=== PATIENT | female | born 2000 | race African-American/Black ===

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

== ENCOUNTER 2021-01-02 23:56 | Emergency (ER) | payer MEDICAID ==
[~2021-01-02] VITALS: Ht 180.3 cm; Wt 135.6 kg
[~2021-01-02 23:56] MED LIST changes: +BCP
--- NOTE | 2021-01-03 00:47 | ED Lower Extremity ---
General Chief Complaint: Lower Extremity Stated Complaint: R FOOT INJ / FALL Nursing Triage Note: Per pt report, Sunday afternoon, pt's right knee "gave out" and she fell and hit the outside of her right foot. Reports taking ibuprofen around 2100, with no relief. Source: patient (TALKS VERY SOFTLY--DIFFICULT TO HEAR) History of Present Illness Date Seen by Provider: January 03, 2021 Time Seen by Provider: 00:10 Initial Comments PT ARRIVES VIA POV FROM HOME WITH MOM--WANTS WHEELCHAIR ON ARRIVAL MOM IS ALSO BEING SEEN FOR EXACT SAME COMPLAINT PT STATES SOMETIME THIS AFTERNOON, HER RIGHT KNEE GAVE OUT ( FREQUENT PROBLEM) AND SHE FELL, HITTING/TWISTING HER RIGHT FOOT C/O PAIN TO LATERAL ASPECT OF RIGHT FOOT NO SWELLING OR BRUISING NO PARESTHESIAS OR MOTOR DEFICITS TOOK IBUPROFEN AT 2100 WITHOUT RELIEF NO PRIOR INJURIES OR PROBLEMS WITH THIS FOOT/ANKLE HAS HAD PRIOR RIGHT KNEE SURGERY. DOES NOT HAVE ANY PAIN IN HER KNEE NO OTHER INJURIES FROM THE INCIDENT LMP--NOW PCP: [facility] AT DR. SUAREZ'S OFFICE Allergies and Home Medications Allergies Coded Allergies: pseudoephedrine (Unverified Adverse Reaction, Mild, 05/21/18) Home Medications Albuterol Sulfate 1 Puff Puff, 2 PUFF IH Q4H PRN for SHORTNESS OF BREATH, (Reported) 1 PUFF = 90 MCG Budesonide/Formoterol Fumarate 10.2 Gm Hfa.aer.ad, 2 PUFF IH BID, (Reported) Sulfamethoxazole/Trimethoprim 1 Each Tablet, 1 EACH PO BID Prescribed by: MOJGAN HERNANDEZ on 07/02/20 0841 Patient Home Medication List Home Medication List Reviewed: Yes Review of Systems Constitutional: no symptoms reported LMP: January 02, 2021 Control/STD Prophylaxis: BC Pills Musculoskeletal: see HPI Skin: no symptoms reported Psychiatric/Neurological: No Symptoms Reported Past Pnwotic-Xkeuzd-Wosobn Hx Past Med/Social Hx: Reviewed and Corrections made Patient Social History Alcohol Use: Denies Use Drug of Choice: DENIES Smoking Status: Never a Smoker 2nd Hand Smoke Exposure: No Recent Infectious Disease Expo: No Recent Hopitalizations: No Ebola Symptoms: Denies Symptoms Listed Immunizations Up To Date Tetanus Booster (TDap): Less than 5yrs PED Vaccines UTD: Yes Date of Pneumonia Vaccine: May 20, 2009 Date of Influenza Vaccine: May 24, 2016 Seasonal Allergies Seasonal Allergies: Yes Past Medical History Surgeries: Yes (DENTAL;UD;L SHOULDER ARTHROSCOPY-TORN LABRUM x2;OVARIAN CYSTECTOMY;R KNEE ) Gallbladder, Orthopedic, Tonsillectomy Respiratory: Yes Asthma Cardiac: No Neurological: No Reproductive Disorders: Yes (LEFT OVARIAN CYST) Female Reproductive Disorders: Denies, Ovarian Cyst Sexually Transmitted Disease: No HIV/AIDS: No Genitourinary: No Gastrointestinal: No Musculoskeletal: Yes (ORTHO SURGERIES) Endocrine: No HEENT: Yes (S/P TONSILLECTOMY) Tonsilitis Loss of Vision: Bilateral Cancer: No Psychosocial: Yes Anxiety, Depression Integumentary: No Blood Disorders: No Adverse Reaction/Blood Tranf: No (N/A) Family Medical History Other Conditions/Hx Physical Exam Vital Signs Vital Signs - First Documented 01/03/21 00:10 Temp 35.7 Pulse 83 Resp 16 B/P (MAP) 122/79 Pulse Ox 98 O2 Delivery Room Air Capillary Refill : Height, Weight, BMI Height: 5'11.00" Weight: 190lbs. 0oz. 86.734389pa; 41.00 BMI Method:Stated General Appearance: WD/WN, no apparent distress, obese, other (VERY FLAT/DEPRESSED AFFECT. TALKS VERY QUIETLY. ) Ankles: left ankle normal inspection; right ankle limited range of motion, right ankle other (NO TENDERNESS TO LATERAL MALLEOLOUS, BUT IS TENDER JUST DISTAL TO ANKLE / PROXIMAL -LATERAL ASPECT OF FOOT. PT WEARING AN MONA WRAP AROUND RIGHT ANKLE. NO BRUISING OR SWELLING) Feet: right foot limited range of motion, right foot other (TENDERNESS TO LATERAL ASPECT OF FOOT/ MID AND PROXIMAL ASPECT . NO BRUISING OR SWELLING OR EXTERNAL EVIDENCE OF TRAUMA. MOTOR/SENSORY/VASCULAR INTACT. 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 NO COMMUNICATION WITH MOTHER DURING ER STAY AMBULATES OUT OF ER ON HER OWN Diagnostic Imaging Comments XRAYS RIGHT FOOT AND ANKLE--NO ACUTE PROCESS, PENDING RADIOLOGIST REVIEW Reviewed: Reviewed by Me Departure Impression Primary Impression: Right foot sprain Disposition: 01 HOME, SELF-CARE Condition: Stable Departure-Patient Inst. Decision time for Depature: 01:08 Referrals: TOMY SUAREZ MD (PCP/Family) Primary Care Physician Patient Instructions: Foot Sprain ED Add. Discharge Instructions: MONA WRAP NEEDED FOR COMFORT ICE TO AREA AT 20 MINUTE INTERVALS ELEVATE FOOT MUCH POSSIBLE TYLENOL AND MOTRIN NEEDED FOR PAIN FOLLOW UP WITH YOUR DR IN 1 WEEK IF NO BETTER All discharge instructions reviewed with patient and/or family. Voiced understanding. SARAH LAROSE DO January 03, 2021 00:47
--- NOTE | 2021-01-03 06:10 | Diagnostic Imaging Report ---
INDICATION: Right ankle pain COMPARISON: None FINDINGS: 3 views of the right ankle demonstrate no fracture or dislocation. Articular surfaces are normal. No foreign body seen. IMPRESSION: No fracture identified Dictated by: Dictated on workstation # [id number]
--- NOTE | 2021-01-03 06:19 | Diagnostic Imaging Report ---
INDICATION: Right foot injury COMPARISON: None FINDINGS: 3 views of the right foot demonstrate no fracture or dislocation. Articular surfaces are normal. No foreign body. IMPRESSION: Negative right foot Dictated by: Dictated on workstation # [id number]
== END 2021-01-03 01:20 | disposition home or self-care (01) ==
LOC: EDUNIT# 23:56 → ER 23:58
DX: S93.601A Unspecified sprain of right foot, initial encounter (principal); J45.909 Unspecified asthma, uncomplicated; E66.9 Obesity, unspecified; Z88.8 Allergy status to other drugs, medicaments and biological substances; Z68.41 Body mass index [BMI] 40.0-44.9, adult; Z79.51 Long term (current) use of inhaled steroids; Z79.899 Other long term (current) drug therapy; X50.1XXA Overexertion from prolonged static or awkward postures, initial encounter
CPT/HCPCS: 73610; 73630

== ENCOUNTER 2021-01-05 08:11 | Outpatient (RCR) | payer MEDICAID ==
[~2021-01-05] VITALS: Ht 177.8 cm; Wt 135.8 kg
== END 2021-01-06 09:01 | disposition home or self-care (01) ==
LOC: PREOP 08:11
PROVIDERS: ATTEND Internal Medicine
DX: Z01.812 Encounter for preprocedural laboratory examination (principal); R13.10 Dysphagia, unspecified; R10.13 Epigastric pain; Z20.822 Contact with and (suspected) exposure to COVID-19
CPT/HCPCS: 87635

== ENCOUNTER 2021-01-07 08:45 | Day surgery (SDC) | payer MEDICAID ==
--- NOTE | 2020-12-29 02:49 | HISTORY AND PHYSICAL ---
DATE OF SERVICE: EGD HISTORY AND PHYSICAL DATE OF ADMISSION: 01/07/2021 HISTORY OF PRESENT ILLNESS: The patient is a 20-year-old white female reporting a several months history of epigastric pain with some intermittent dysphagia. She points to the center of the precordium where she feels like food intermittently gets hung up. She was started on pantoprazole, which she takes in the evening as she was having nighttime reflux sounding symptoms with only minimal benefit. She denies regurgitation. She has had no coughing, but does have some occasional choking at night. She has noticed no bright red blood per rectum or melena. She has had no change in weight. PAST SURGICAL HISTORY: Significant for cholecystectomy for microscopic colitis in [address] Tyler, she had a low gallbladder ejection fraction of 25% after unremarkable abdominal sono for nausea, vomiting and right upper quadrant pain. PHYSICAL EXAMINATION: GENERAL: Reveals a pleasant black female, in no acute distress. VITAL SIGNS: Weight was 302.6 pounds. Blood pressure 120/80. CHEST: Clear to auscultation. CARDIOVASCULAR: Revealed a regular rate and rhythm without murmur, S3 or S4. ABDOMEN: Soft, supple. Mild epigastric pain to palpation is present without rebound or guarding. No mass or organomegaly is noted. No other areas of pain noted to palpation of the abdomen. Stretch barrett noted. Mildly pigmented. EXTREMITIES: Reveal no cyanosis, clubbing or edema. ASSESSMENT AND PLAN: The patient is being set up for diagnostic EGD due to reflux symptoms refractory to proton pump inhibitor therapy and intermittent dysphagia to solids. Prep instructions were discussed with the patient and her mother and questions were answered. Job ID: [id number] DocumentID: [id number] Dictated Date: 12/27/2020 11:38:04 Aeronautical Project Engineer Date: 12/27/2020 12:03:06 Dictated By: TOMY SUAREZ MD
[~2021-01-07] VITALS: Ht 177.8 cm; Wt 135.6 kg
[2021-01-07 09:00] VITALS: BP 116/71
[2021-01-07] MEDS ORDERED: LACTATED RINGERS 1,000 ML IV STA (09:04)
[2021-01-07] MEDS ORDERED: LACTATED RINGERS 1,000 ML IV ONE (09:05)
[2021-01-07] MEDS ORDERED: LIDOCAINE JELLY 2% 6 ML SYRINGE MM PRN (09:15)
[2021-01-07] MEDS ORDERED: HURRICAINE EXT TUBE (BENZOCAINE) XX PRN (09:15)
--- NOTE | 2021-01-07 09:30 | Pre-Op Note & Conscious Sedat ---
Pre-Operative Progress Note H&P Reviewed The H&P was reviewed, patient examined and no changes noted. Date H&P Reviewed: January 07, 2021 Time H&P Reviewed: 09:29 Conscious Sedation Pre-Proced ASA Score 2 For ASA 3 and 4: Consider anesthesia and medical clearance. Also, for patients with a history of failed moderate sedation consider anesthesia. Airway Lungs Heart ASA score ASA 1: a normal healthy patient ASA 2: a patient with a mild systemic disease (mid diabetes, controlled hypertension, obesity ASA 3: a patient with a severe systemic disease that limits activity (angina, COPD, prior Myocardial infarction) ASA 4: a patient with an incapacitating disease that is a constant threat to life (CHF, renal failure) ASA 5: a moribund patient not expected to survive 24 hrs. (ruptured aneurysm) ASA 6: a declared brain- patient whose organs are being harvested. For emergent operations, add the letter E after the classification Mallampati Classification Grade 2 Sedation Plan Analgesia, Amnesia, Plan communicated to team members, Discussed options with patient/fam, Discussed risks with patient/fam The patient is an appropriate candidate to undergo the planned procedure, sedation, and anesthesia. The patient immediately re-assessed prior to indication. TOMY SUAREZ MD January 07, 2021 09:29
[2021-01-07] MEDS ORDERED: MIDAZOLAM 5 MG/5 ML (VERSED) VIAL ONE (09:40)
[2021-01-07] MEDS ORDERED: PROPOFOL INJECTION 50 ML IV ONE (09:40)
[2021-01-07 10:35] VITALS: BP 139/84
[2021-01-07 10:40] VITALS: BP 144/69
[2021-01-07 10:45] VITALS: BP 121/66
[2021-01-07 11:10] VITALS: BP 128/89
[2021-01-07 12:25] VITALS: BP 128/89
--- NOTE | 2021-01-07 14:51 | Anesthesia-General Post-Op ---
MAC Patient Condition Mental Status/LOC: Same as Preop Cardiovascular: Satisfactory Nausea/Vomiting: Absent Respiratory: Satisfactory Pain: Controlled Complications: Absent Post Op Complications Complications None Follow Up Care/Instructions Patient Instructions None needed. Anesthesiology Discharge Order Discharge Order Patient is doing well, no complaints, stable vital signs, no apparent adverse anesthesia problems. No complications reported per nursing. POLO ESCALANTE CRNA January 07, 2021 14:51
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
== END 2021-01-07 12:25 | disposition home or self-care (01) ==
LOC: ENDO 08:45
PROVIDERS: ATTEND Internal Medicine
DX: K44.9 Diaphragmatic hernia without obstruction or gangrene (principal); K21.00 Gastro-esophageal reflux disease with esophagitis, without bleeding; J45.909 Unspecified asthma, uncomplicated; E66.01 Morbid (severe) obesity due to excess calories; F41.9 Anxiety disorder, unspecified; F32.9 Major depressive disorder, single episode, unspecified; Z90.49 Acquired absence of other specified parts of digestive tract; Z79.899 Other long term (current) drug therapy; Z88.8 Allergy status to other drugs, medicaments and biological substances; Z68.41 Body mass index [BMI] 40.0-44.9, adult; Z98.890 Other specified postprocedural states
CPT/HCPCS: 84703

== ENCOUNTER → 2021-02-08 | Outpatient (CLI) | payer MEDICAID ==
[~2021-02-08] MED LIST changes: -OMEP40CA27; +OMEP40CA6
--- NOTE | 2021-02-08 13:57 | Diagnostic Imaging Report ---
PROCEDURE: Pelvic comp/transvaginal sonogram. TECHNIQUE: Complete transabdominal and transvaginal pelvic ultrasound was performed. In addition, limited pelvic Doppler was performed. INDICATION: Right-sided pelvic pain. FINDINGS: Uterus is anteverted measuring 5.8 x 2.6 x 3.2 cm. Endometrium is 2 mm in thickness. No myometrial mass is detected. Right ovary measures 2.3 x 2.7 x 1.6 cm and the left ovary measures 2.5 x 1.6 x 2.0 cm. There is blood flow to both ovaries. The ovaries contain small follicles. No adnexal mass or free fluid is detected. IMPRESSION: Unremarkable transabdominal and transvaginal pelvic ultrasound. Dictated by: Dictated on workstation # [id number]
== END ==
LOC: RAD 12:30
PROVIDERS: ATTEND Obstetrics & Gynecology
DX: R10.2 Pelvic and perineal pain (principal)
CPT/HCPCS: 76830; 76856

== ENCOUNTER → 2021-03-16 | Outpatient (CLI) | payer MEDICAID ==
[~2021-03-16] MED LIST changes: -SULF1TAB35 PO; +SULF1TAB38 PO
== END ==
LOC: LABNPT 05:35
PROVIDERS: ATTEND Internal Medicine
DX: Z20.822 Contact with and (suspected) exposure to COVID-19 (principal)
CPT/HCPCS: 87636

== ENCOUNTER 2021-05-23 14:04 | Emergency (ER) | payer MEDICAID ==
[~2021-05-23] VITALS: Ht 180 cm; Wt 126.5 kg
[2021-05-23] MEDS ORDERED: KETOROLAC 30 MG/ML VIAL IVP ONE (14:45)
--- NOTE | 2021-05-23 14:45 | ED Abdominal Pain ---
General Chief Complaint: Abdominal/GI Problems Stated Complaint: R SIDED PAIN Nursing Triage Note: Pt ambulatory to ED with c/o RLQ pain that began 2-3 weeks ago. Pt describes the pain as "sharp" and "constant." Pt denies n/v/d, no changes in bowel habits. Pt tachycardic upon arrival. Source of Information: Patient Exam Limitations: No Limitations History of Present Illness Date Seen by Provider: May 23, 2021 Time Seen by Provider: 14:30 Initial Comments Patient is a 20-year-old female who presents to the emergency department with a chief complaint of right-sided abdominal pain onset about 2 weeks ago. Patient states the pain is constant. It is worsened by movement possibly. Not worsened by food. No nausea, vomiting, diarrhea, black or bloody stool. Last bowel movement was yesterday. No abnormal vaginal discharge. Patient states that she should be starting her menstrual cycle soon. She has been alternating Tylenol, ibuprofen and gabapentin. Last dose of ibuprofen was last night. No reported fevers or chills. Patient has had previous cholecystectomy a couple of years ago. Mother does not recall if she had gallstones at the time or not. She has seen her primary care provider's nurse practitioner and was checked for "pancreatitis" yesterday. This was negative by report of the patient. She also has had a history of ovarian cysts in the past. All other review of systems reviewed and negative except as stated. Timing/Duration: Other (2 weeks) Severity/Quality: Moderate ("8") Location: RLQ Radiation: No Radiation Allergies and Home Medications Allergies Coded Allergies: pseudoephedrine (Unverified Adverse Reaction, Mild, 05/21/18) Patient Home Medication List Home Medication List Reviewed: Yes Albuterol Sulfate (Proair Hfa) 1 Puff Puff, 2 PUFF IH Q4H PRN for SHORTNESS OF BREATH, (Reported) Entered as Reported by: CHARO HEMPHILL on 05/01/18 0839 Budesonide/Formoterol Fumarate (Symbicort 160-4.5 Mcg Inhaler) 10.2 Gm Hfa.aer.ad, 2 PUFF IH BID, (Reported) Entered as Reported by: PERFECTO QUINTANA on 09/19/18 1144 Fluoxetine HCl (Fluoxetine HCl) 20 Mg Capsule, (Reported) Entered as Reported by: VIOLA JOEL on 08/30/19 0810 Omeprazole (Omeprazole) 40 Mg Capsule., (Reported) Entered as Reported by: VIOLA JOEL on 08/30/19 0810 [Bcp] , (Reported) Entered as Reported by: JAX MAGALLANES on 12/31/20 1140 Review of Systems Review of Systems Constitutional: see HPI EENTM: No Symptoms Reported Respiratory: No Symptoms Reported Cardiovascular: No Symptoms Reported Gastrointestinal: Abdominal Pain Genitourinary: No Symptoms Reported Musculoskeletal: no symptoms reported Skin: no symptoms reported Psychiatric/Neurological: No Symptoms Reported All Other Systems Reviewed Negative Unless Noted: Yes Past Cjpyyhx-Kwtqqt-Vczihx Hx Patient Social History Tobacco Use?: No Use of E-Cig and/or Vaping dev: No Substance use?: No Alcohol Use?: No Immunizations Up To Date Tetanus Booster (TDap): Less than 5yrs PED Vaccines UTD: Yes Influenza Vaccine Up-to-Date: No; Not Current First/Initial COVID19 Vaccinat: 11/18/2020 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: [employer] Seasonal Allergies Seasonal Allergies: Yes Past Medical History Surgeries: Yes (DENTAL;UD;L SHOULDER ARTHROSCOPY-TORN LABRUM x2;OVARIAN CYSTECTOMY;R KNEE ) Gallbladder, Orthopedic, Tonsillectomy Respiratory: Yes Asthma Cardiac: No Neurological: No Reproductive Disorders: Yes (LEFT OVARIAN CYST) Female Reproductive Disorders: Denies, Ovarian Cyst Sexually Transmitted Disease: No HIV/AIDS: No Genitourinary: No Gastrointestinal: No Musculoskeletal: Yes (ORTHO SURGERIES) Endocrine: No HEENT: Yes (S/P TONSILLECTOMY) Tonsilitis Loss of Vision: Bilateral Cancer: No Psychosocial: Yes Anxiety, Depression Integumentary: No Blood Disorders: No Adverse Reaction/Blood Tranf: No (N/A) Family Medical History Other Conditions/Hx Physical Exam Vital Signs Vital Signs - First Documented 05/23/21 14:05 Temp 36.2 Pulse 118 Resp 16 B/P (MAP) 124/79 (94) Pulse Ox 98 O2 Delivery Room Air Capillary Refill : Less Than 3 Seconds Height/Weight/BMI Height: 5'11.00" Weight: 190lbs. 0oz. 86.065417bl; 42.89 BMI Method:Stated General Appearance: WD/WN, no apparent distress HEENT: PERRL/EOMI Respiratory: lungs clear, normal breath sounds, no respiratory distress, no accessory muscle use Cardiovascular: regular rate, rhythm, tachycardia (113), other (Normal peripheral pulses) Gastrointestinal: normal bowel sounds, soft, tenderness (very minimal abdominal tenderness right low abdomen; negative rovsing's; ?rebound; minimal cva tenderness on the right) Extremities: normal range of motion, non-tender, normal inspection, no pedal edema Back: CVA tenderness (R) Neurologic/Psychiatric: alert, normal mood/affect, oriented x 3 Skin: normal color, warm/dry Progress/Results/Core Measures Results/Orders Lab Results Laboratory Tests Test 05/23/21 14:20 05/23/21 14:54 Range/Units Urine Color YELLOW Urine Clarity CLOUDY Urine pH 6.0 5-9 Urine Specific Sutter 1.015 L 1.016-1.022 Urine Protein NEGATIVE NEGATIVE Urine Glucose (UA) NEGATIVE NEGATIVE Urine Ketones NEGATIVE NEGATIVE Urine Nitrite NEGATIVE NEGATIVE Urine Bilirubin 1+ H NEGATIVE Urine Urobilinogen NORMAL < = 1.0 MG/DL Urine Leukocyte Esterase 2+ H NEGATIVE Urine RBC (Auto) NEGATIVE NEGATIVE Urine RBC NONE /HPF Urine WBC 25-50 H /HPF Urine Squamous Epithelial Cells 10-25 H /HPF Urine Crystals NONE /LPF Urine Bacteria TRACE /HPF Urine Casts NONE /LPF Urine Mucus NEGATIVE /LPF Urine Culture Indicated YES White Blood Count 8.9 4.3-11.0 10^3/uL Red Blood Count 4.41 3.80-5.11 10^6/uL Hemoglobin 12.0 11.5-16.0 g/dL Hematocrit 37 35-52 % Mean Corpuscular Volume 83 80-99 fL Mean Corpuscular Hemoglobin 27 25-34 pg Mean Corpuscular Hemoglobin Concent 33 32-36 g/dL Red Cell Distribution Width 13.9 10.0-14.5 % Platelet Count 356 130-400 10^3/uL Mean Platelet Volume 9.8 9.0-12.2 fL Immature Granulocyte % (Auto) 0 % Neutrophils (%) (Auto) 67 42-75 % Lymphocytes (%) (Auto) 24 12-44 % Monocytes (%) (Auto) 5 0-12 % Eosinophils (%) (Auto) 3 0-10 % Basophils (%) (Auto) 0 0-10 % Neutrophils # (Auto) 6.0 1.8-7.8 10^3/uL Lymphocytes # (Auto) 2.2 1.0-4.0 10^3/uL Monocytes # (Auto) 0.5 0.0-1.0 10^3/uL Eosinophils # (Auto) 0.2 0.0-0.3 10^3/uL Basophils # (Auto) 0.0 0.0-0.1 10^3/uL Immature Granulocyte # (Auto) 0.0 0.0-0.1 10^3/uL Sodium Level 135 135-145 MMOL/L Potassium Level 3.7 3.6-5.0 MMOL/L Chloride Level 107 98-107 MMOL/L Carbon Dioxide Level 19 L 21-32 MMOL/L Anion Gap 9 5-14 MMOL/L Blood Urea Nitrogen 7 7-18 MG/DL Creatinine 0.58 L 0.60-1.30 MG/DL Estimat Glomerular Filtration Rate 162 BUN/Creatinine Ratio 12 Glucose Level 96 70-105 MG/DL Calcium Level 9.0 8.5-10.1 MG/DL Corrected Calcium 9.4 8.5-10.1 MG/DL Total Bilirubin 0.3 0.1-1.0 MG/DL Aspartate Amino Transf (AST/SGOT) 7 5-34 U/L Alanine Aminotransferase (ALT/SGPT) 6 0-55 U/L Alkaline Phosphatase 58 40-136 U/L Total Protein 6.9 6.4-8.2 GM/DL Albumin 3.5 3.2-4.5 GM/DL My Orders Orders - KRISTOFER WEAVER MD Hcg,Qualitative Urine (05/23/21 14:38) Cbc With Automated Diff (05/23/21 14:38) Comprehensive Metabolic Panel (05/23/21 14:38) Ketorolac Injection (Toradol Injection) (05/23/21 14:45) Medications Given in ED Current Medications Medications Dose Ordered Sig/Prabhakar Route Start Time Stop Time Status Last Admin Dose Admin Ketorolac Tromethamine 30 mg ONCE ONCE IVP 05/23/21 14:45 05/23/21 14:46 DC 05/23/21 14:52 30 MG Vital Signs/I&O 05/23/21 14:05 Temp 36.2 Pulse 118 Resp 16 B/P (MAP) 124/79 (94) Pulse Ox 98 O2 Delivery Room Air Blood Pressure Mean: 94 Progress Progress Note : Time: 16:00 Progress Note Patient's labs reviewed, reassuring. Her urine is contaminated with lots of squamous epithelial cells, I do not believe this represents urinary tract infection. Urine is flagged for culture. As the patient is not having symptoms of UTI at this time will defer antibiotics for the culture. I recommended the patient use vxrc-xwa-fypgywo lidocaine patches and switch from ibuprofen to naproxen. Cautioning her to always take naproxen with food. I have advised her to return to the emergency room if she develops a rash, fever, vomiting or other concerning symptoms. She is comfortable with this plan of care. All que stions are sought and answered. Patient desires referral to Dr. Tyler, contact information is provided. All questions are sought and answered. Patient is stable for discharge. Departure Impression Primary Impression: Abdominal pain Qualified Codes: R10.31 - Right lower quadrant pain Disposition: HOME, SELF-CARE Condition: Stable Departure-Patient Inst. Decision time for Depature: 16:02 Referrals: TOMY SUAREZ MD (PCP/Family) Primary Care Physician NORBERT TYLER MD Patient Instructions: Abdominal Pain, Adult ED Add. Discharge Instructions: Drink lots of fluids to stay well-hydrated. You can take ilsu-wtk-xvakxhi Aleve/naproxen 2 pills, with food, twice daily as needed for pain. Do this instead of taking ghhw-zzo-lvwscat ibuprofen. You can also apply a lidocaine patch, available gtue-fzj-pnjegud to the area of pain which may help your symptoms. Please call Dr. Tyler's office tomorrow for a follow-up in his office. Come back to the emergency room for any new, concerning or emergent complaints especially fever and vomiting. KRISTOFER WEAVER MD May 23, 2021 14:45
[2021-05-23 14:51] LABS: CLARITY,URINE CLOUDY; COLOR,URINE YELLOW
[2021-05-23 14:56] LABS: BILIRUBIN,URINE 1+ (NEGATIVE); GLUCOSE, URINE (UA) NEGATIVE (NEGATIVE); KETONES,URINE NEGATIVE (NEGATIVE); NITRITE,URINE NEGATIVE (NEGATIVE); PROTEIN,URINE NEGATIVE (NEGATIVE)
[2021-05-23 14:57] LABS: BACTERIA,URINE TRACE /HPF; LEUKOCYTE ESTERASE ,URINE 2+ (NEGATIVE); WBC,URINE 25-50 /HPF
[2021-05-23 15:04] LABS: BASOPHILS % (AUTO) 0 % (0-10); EOSINOPHILS # (AUTO) 0.2 10^3/uL (0.0-0.3); EOSINOPHILS % (AUTO) 3 % (0-10); HEMATOCRIT 37 % (35-52); LYMPHOCYTES # (AUTO) 2.2 10^3/uL (1.0-4.0); LYMPHOCYTES % (AUTO) 24 % (12-44); MEAN CORPUSCULAR HEMOGLOBIN 27 pg (25-34); MEAN CORPUSCULAR HGB CONC 33 g/dL (32-36); MEAN CORPUSCULAR VOLUME 83 fL (80-99); MEAN PLATELET VOLUME 9.8 fL (9.0-12.2); MONOCYTES # (AUTO) 0.5 10^3/uL (0.0-1.0); MONOCYTES % (AUTO) 5 % (0-12); NEUTROPHILS % (AUTO) 67 % (42-75); PLATELET COUNT 356 10^3/uL (130-400); WHITE BLOOD COUNT 8.9 10^3/uL (4.3-11.0)
[2021-05-23 15:10] LABS: ALBUMIN 3.5 GM/DL (3.2-4.5); POTASSIUM 3.7 MMOL/L (3.6-5.0)
[2021-05-23 15:13] LABS: TOTAL PROTEIN 6.9 GM/DL (6.4-8.2)
[2021-05-23 15:14] LABS: BILIRUBIN,TOTAL 0.3 MG/DL (0.1-1.0)
[2021-05-23 15:16] LABS: CREATININE SERUM 0.58 MG/DL (0.60-1.30)
[2021-05-23 16:19] VITALS: BP 116/82
== END 2021-05-23 16:17 | disposition home or self-care (01) ==
LOC: EDUNIT# 14:04 → ER 14:05
DX: R10.31 Right lower quadrant pain (principal); J45.909 Unspecified asthma, uncomplicated; F41.9 Anxiety disorder, unspecified; F32.9 Major depressive disorder, single episode, unspecified; Z90.49 Acquired absence of other specified parts of digestive tract; Z79.899 Other long term (current) drug therapy
CPT/HCPCS: 36415; 80053; 81000; 84703; 85025; 87088

== ENCOUNTER → 2021-05-30 | Outpatient (CLI) | payer MEDICAID ==
[~2021-05-30] MED LIST changes: +CATHETER FLUSH 10 ML SYR IV PRN; +HOLD METFORMIN - RECEIVED CONTRAST 20 ML VIAL IV SCH; +IOHEXOL 350 MG/ML 100 ML (OMNIPAQUE 350) VIAL IV ONE; +NS 100 ML (IVPB) BAG IV ONE
--- NOTE | 2021-05-30 11:21 | Diagnostic Imaging Report ---
PROCEDURE: CT abdomen and pelvis with and without contrast. TECHNIQUE: Precontrast acquisitions were acquired through the abdomen and pelvis. Multiple contiguous axial images were obtained through the abdomen and pelvis after the administration of intravenous contrast. Auto Exposure Controls were utilized during the CT exam to meet ALARA standards for radiation dose reduction. INDICATION: Right upper quadrant pain for one week. COMPARISON: Comparison is made with prior CT from 07/12/2020. FINDINGS: The lung bases are clear. The liver is unremarkable. Gallbladder is surgically absent. No biliary ductal dilatation is seen. Pancreas and spleen are unremarkable. No adrenal mass is detected. Kidneys are unremarkable. Aorta is nonaneurysmal. Small and large bowel loops are normal in caliber. There is no obstruction. No free fluid or fluid collection is identified. The uterus and bladder are unremarkable. No inflammatory changes are identified. There are some mildly prominent lymph nodes in right lower quadrant but no other significant abnormality is seen. IMPRESSION: No acute feature in the abdomen or pelvis is identified. Dictated by: Dictated on workstation # [id number]
--- NOTE | 2021-05-31 08:09 | HISTORY AND PHYSICAL ---
DATE OF SERVICE: DATE OF ADMISSION: 05/30/2021 The patient is scheduled for a CT with and without IV contrast of abdomen and pelvis. ATTENDING PRIMARY CARE PHYSICIAN: Dr. Ajit Araujo. HISTORY OF PRESENT ILLNESS: The patient is a 20-year-old female known to us. She has had a longstanding history of gastrointestinal issues first starting with the right upper abdominal quadrant pain and was found to have biliary dyskinesia and underwent a laparoscopic cholecystectomy on 05/02/2018. She then had reported epigastric burning sensation and reflux type of symptoms and underwent an EGD as well as biopsies on 09/20/2018, found to have a reflux esophagitis stage II, small hiatal hernia less than 1 cm in size as well as a nqqq-nf-gdbangqf gastritis. She was then seen by her primary care physician with similar symptoms and she underwent another EGD about four months ago, which pretty much showed the same findings. She does report having a history of ovarian cyst and states that she does have a bowel movement daily for the most part and may have occasional episodes of constipation. She states that the pain is more in the right lower abdominal quadrant. Her affect is flat and she does have a history of depression as well. 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 MEDICATIONS: Protonix 40 mg daily, sumatriptan daily, duloxetine daily, oral contraceptive pill daily, and albuterol inhaler p.r.n. SOCIAL HISTORY: Negative smoke and negative alcohol. FAMILY HISTORY: Noncontributory. ALLERGIES: PSEUDOEPHEDRINE. REVIEW OF SYSTEMS: A well-nourished female currently in no acute distress. She is not experiencing any shortness of breath or difficulty in breathing. No chest pain, palpitations or diaphoresis. No nausea or vomiting. States that for the most part, she does have a bowel movement daily; however, has had some issues with constipation in the past. She also does have a history of ovarian cyst and states that she was recently started on a different oral contraceptive pill. She does have pain in the right lower abdominal quadrant. No red blood per rectum and no dark tarry stools. No fever, chills, and no recent inadvertent weight loss. All other review of systems negative. PHYSICAL EXAMINATION: VITAL SIGNS: Stable. Blood pressure 118/74, current weight 284.0 pounds at 5 feet 11 inches. CHEST: Clear. Good breath sounds bilaterally. HEART: Regular and no murmurs. EXTREMITIES: No lower extremity edema and negative Homans sign. HEENT: No scleral icterus. NECK: No cervical lymphadenopathy. ABDOMEN: Soft and nondistended. There is mild discomfort in the right lower abdominal quadrant upon deep palpation. No peritoneal signs. No hernias. SKIN: Warm and dry. ASSESSMENT AND PLAN: A 20-year-old female with right lower abdominal quadrant pain. The differential is broad, which may encompass constipation versus an ovarian cyst versus a potential Meckel's diverticulum versus a chronic appendicitis or a terminal ileitis. Her symptoms are also nonspecific and we will get a CT scan of the abdomen and pelvis with and without IV contrast. Job ID: [id number] DocumentID: [id number] Dictated Date: 05/24/2021 17:41:20 Edge Setter Date: 05/24/2021 17:58:14 Dictated By: NORBERT FERNANDEZ MD
== END ==
LOC: RAD 08:53
PROVIDERS: ATTEND Surgery
DX: R10.11 Right upper quadrant pain (principal)
CPT/HCPCS: 74178

== ENCOUNTER 2021-07-03 10:25 | Emergency (ER) | payer MEDICAID ==
[~2021-07-03] VITALS: Ht 180 cm; Wt 126.5 kg
[~2021-07-03 10:25] MED LIST changes: -CATHETER FLUSH 10 ML SYR IV PRN; -HOLD METFORMIN - RECEIVED CONTRAST 20 ML VIAL IV SCH; -IOHEXOL 350 MG/ML 100 ML (OMNIPAQUE 350) VIAL IV ONE; -NS 100 ML (IVPB) BAG IV ONE
--- NOTE | 2021-07-03 11:26 | ED Cough/URI ---
General Chief Complaint: COVID19 Suspect/Confirmed Stated Complaint: COUGH/FEVER/SORE THROAT/BODY ACHES Nursing Triage Note: PT HAS COUGH, FEVERS, BODY ACHES, AND N/V/D SINCE SUNDAY Source: patient Exam Limitations: no limitations History of Present Illness Date Seen by Provider: Jul 03, 2021 Time Seen by Provider: 11:10 Initial Comments Patient is a 20-year-old female who presents to the emergency department today with a chief complaint of cough, congestion, nausea, body aches over the course of the last 2 to 3 days. Patient has been using Tylenol Sinus for her symptoms. Patient states that her throat got more sore last night. She "lost her voice". She denies diarrhea, burning with urination. She denies rashes. She is unaware of any sick contacts. Patient is Covid vaccinated as of November. No chest pain or shortness of breath. Cough is nonproductive. All other review of systems reviewed and negative except as stated. Timing/Duration: constant (2-3 days) Severity/Quality: mild, dry cough Associated Symptoms: cough, muscle aches, nasal congestion, sore throat Allergies and Home Medications Allergies Coded Allergies: pseudoephedrine (Unverified Adverse Reaction, Mild, 05/21/18) Patient Home Medication List Home Medication List Reviewed: Yes Albuterol Sulfate (Proair Hfa) 1 Puff Puff, 2 PUFF IH Q4H PRN for SHORTNESS OF BREATH, (Reported) Entered as Reported by: CHARO HEMPHILL on 05/01/18 0839 Budesonide/Formoterol Fumarate (Symbicort 160-4.5 Mcg Inhaler) 10.2 Gm Hfa.aer.ad, 2 PUFF IH BID, (Reported) Entered as Reported by: PERFECTO QUINTANA on 09/19/18 1144 Fluoxetine HCl (Fluoxetine HCl) 20 Mg Capsule, (Reported) Entered as Reported by: VIOLA JOEL on 08/30/19 0810 Omeprazole (Omeprazole) 40 Mg Capsule., (Reported) Entered as Reported by: VOILA JOEL on 08/30/19 0810 [Bcp] , (Reported) Entered as Reported by: JAX MAGALLANES on 12/31/20 1140 Review of Systems Review of Systems Constitutional: see HPI EENTM: nose congestion, throat pain Respiratory: cough Cardiovascular: no symptoms reported Gastrointestinal: nausea Genitourinary: no symptoms reported Musculoskeletal: muscle cramps Skin: no symptoms reported All Other Systems Reviewed Negative Unless Noted: Yes Past Nqbzvwi-Mralpj-Ljpzgj Hx Patient Social History Tobacco Use?: No Substance use?: No Alcohol Use?: No Pt feels they are or have been: No Immunizations Up To Date Tetanus Booster (TDap): Less than 5yrs PED Vaccines UTD: Yes First/Initial COVID19 Vaccinat: J AND J NOVEMBER 2020 Seasonal Allergies Seasonal Allergies: Yes Past Medical History Surgeries: Yes (DENTAL;UD;L SHOULDER ARTHROSCOPY-TORN LABRUM x2;OVARIAN CYSTECTOMY;R KNEE ) Gallbladder, Orthopedic, Tonsillectomy Respiratory: Yes Asthma Cardiac: No Neurological: No Reproductive Disorders: Yes (LEFT OVARIAN CYST) Female Reproductive Disorders: Denies, Ovarian Cyst Sexually Transmitted Disease: No HIV/AIDS: No Genitourinary: No Gastrointestinal: No Musculoskeletal: Yes (ORTHO SURGERIES) Endocrine: No HEENT: Yes (S/P TONSILLECTOMY) Tonsilitis Loss of Vision: Bilateral Cancer: No Psychosocial: Yes Anxiety, Depression Integumentary: No Blood Disorders: No Adverse Reaction/Blood Tranf: No (N/A) Family Medical History Other Conditions/Hx Physical Exam Vital Signs - First Documented 07/03/21 10:35 Temp 37.1 Pulse 101 Resp 18 B/P (MAP) 134/97 (109) Pulse Ox 97 Capillary Refill : Less Than 3 Seconds Height: 5'11.00" Weight: 190lbs. 0oz. 86.701650sk; 39.00 BMI Method:Stated General Appearance: WD/WN, no apparent distress Eyes: Bilateral Eye Normal Inspection, Bilateral Eye PERRL, Bilateral Eye EOMI HEENT: PERRL/EOMI, normal ENT inspection, TMs normal, pharyngeal erythema (mild; tonsils surgically absent) Neck: non-tender, full range of motion, supple, normal inspection Respiratory: lungs clear, normal breath sounds, no respiratory distress, no accessory muscle use Cardiovascular: regular rate, rhythm Extremities: normal range of motion, normal inspection Neurologic/Psychiatric: alert, normal mood/affect, oriented x 3 Skin: normal color, warm/dry Progress/Results/Core Measures Suspected Sepsis SIRS Temperature: Pulse: 101 Respiratory Rate: 18 Blood Pressure 134 /97 Mean: 109 Results/Orders Lab Results Laboratory Tests Test 07/03/21 10:39 Range/Units Influenza Type A (RT-PCR) Not Detected Not Detecte Influenza Type B (RT-PCR) Not Detected Not Detecte SARS-CoV-2 RNA (RT-PCR) Not Detected Not Detecte My Orders Orders - KRISTOFER WEAVER MD Covid 19 Inhouse Test (07/03/21 10:46) Influenza A And B By Pcr (07/03/21 10:46) Vital Signs/I&O 07/03/21 10:35 Temp 37.1 Pulse 101 Resp 18 B/P (MAP) 134/97 (109) Pulse Ox 97 Capillary Refill : Less Than 3 Seconds Blood Pressure Mean: 109 Departure Impression Primary Impression: Viral syndrome Additional Impression: Laryngitis Disposition: 01 HOME, SELF-CARE Condition: Stable Departure-Patient Inst. Decision time for Depature: 11:25 Referrals: TOMY ARAUJO MD (PCP/Family) Primary Care Physician Patient Instructions: Laryngitis Add. Discharge Instructions: Drink plenty of fluids to stay well-hydrated. Take [id number] ibuprofen, 3 tablets which is 600 mg every 8 hours with f ood as needed for body aches and fever. Continue the Tylenol cold medications twice daily. Return to the emergency room for any new emergent, or concerning symptom. Follow up with Dr. Araujo as needed KRISTOFER WEAVER MD Jul 03, 2021 11:26
[2021-07-03 11:32] VITALS: BP 134/97
== END 2021-07-03 11:32 | disposition home or self-care (01) ==
LOC: EDUNIT# 10:25 → ER 10:27
DX: B34.9 Viral infection, unspecified (principal); J04.0 Acute laryngitis; J45.909 Unspecified asthma, uncomplicated; F41.9 Anxiety disorder, unspecified; F32.9 Major depressive disorder, single episode, unspecified; Z20.822 Contact with and (suspected) exposure to COVID-19; Z79.899 Other long term (current) drug therapy
CPT/HCPCS: 87636; 99283

== ENCOUNTER → 2021-08-15 | Outpatient (CLI) ==
[~2021-08-15] MED LIST changes: -FLUO20CA46; +FLUO20CA48
== END ==
LOC: LABNPT 04:54 → MERGE 04:54
PROVIDERS: ATTEND Internal Medicine
DX: Z20.822 Contact with and (suspected) exposure to COVID-19 (principal)
CPT/HCPCS: 87635

== ENCOUNTER → 2021-09-13 | Outpatient (CLI) | payer MEDICAID | LOC: LABNPT 08:24 | PROVIDERS: ATTEND Internal Medicine | DX: R05.9 Cough, unspecified (principal); Z20.822 Contact with and (suspected) exposure to COVID-19 | CPT/HCPCS: 87635 ==

== ENCOUNTER → 2021-09-16 | Outpatient (CLI) | payer MEDICAID ==
--- NOTE | 2021-09-16 12:17 | Diagnostic Imaging Report ---
INDICATION: Cough PA and lateral chest Heart size and pulmonary vascularity are normal. Lungs are clear. There are no effusions or pneumothoraces. IMPRESSION: No acute abnormalities in the chest. Dictated by: Dictated on workstation # [id number]
== END ==
LOC: RAD 10:36
PROVIDERS: ATTEND Nurse Practitioner Family
DX: J45.909 Unspecified asthma, uncomplicated (principal); Z20.822 Contact with and (suspected) exposure to COVID-19
CPT/HCPCS: 71046

== ENCOUNTER 2021-11-01 10:00 | Outpatient (RCR) | payer MEDICAID | END 2021-11-17 | disposition home or self-care (01) | LOC: CARD 10:00 | PROVIDERS: ATTEND Internal Medicine Cardiovascular Disease | DX: I51.7 Cardiomegaly (principal); Q79.62 Hypermobile Ehlers-Danlos syndrome | CPT/HCPCS: 93306 ==

== ENCOUNTER → 2021-12-06 | Emergency (ER) | payer MEDICAID ==
[~2021-12-06] VITALS: Ht 180 cm; Wt 118.0 kg
--- NOTE | 2021-12-06 18:51 | ED Upper Extremity ---
General Stated Complaint: PAIN IN RIGHT HAND Source: patient Exam Limitations: no limitations History of Present Illness Date Seen by Provider: Dec 06, 2021 Time Seen by Provider: 18:47 Initial Comments To ER with left hand left wrist pain for 3 years. It is worse today. She has had some progressive numbness of the palm on the ulnar side of the hand as well as the pinky finger and the ulnar side of the ring finger. No known injury. Saw primary care today and got a Toradol shot did not help. Onset: just prior to arrival Severity: moderate Pain/Injury Location: right hand, right 4th finger, right 5th finger Method of Injury: unknown Modifying Factors: Worse With Movement Allergies and Home Medications Allergies Coded Allergies: pseudoephedrine (Unverified Adverse Reaction, Mild, 05/21/18) Patient Home Medication List Home Medication List Reviewed: Yes Albuterol Sulfate (Proair Hfa) 1 Puff Puff, 2 PUFF IH Q4H PRN for SHORTNESS OF BREATH, (Reported) Entered as Reported by: CHARO HEMPHILL on 05/01/18 0839 Budesonide/Formoterol Fumarate (Symbicort 160-4.5 Mcg Inhaler) 10.2 Gm Hfa.aer.ad, 2 PUFF IH BID, (Reported) Entered as Reported by: PERFECTO QUINTANA on 09/19/18 1144 Fluoxetine HCl (Fluoxetine HCl) 20 Mg Capsule, (Reported) Entered as Reported by: VIOLA JOEL on 08/30/19 0810 Omeprazole (Omeprazole) 40 Mg Capsule., (Reported) Entered as Reported by: VIOLA JOEL on 08/30/19 0810 [Bcp] , (Reported) Entered as Reported by: JAX MAGALLANES on 12/31/20 1140 Review of Systems Constitutional: see HPI EENTM: see HPI Respiratory: no symptoms reported Cardiovascular: no symptoms reported Genitourinary: no symptoms reported Musculoskeletal: see HPI Skin: no symptoms reported Psychiatric/Neurological: No Symptoms Reported Past Tcnvtnw-Nwkefp-Rzjnhj Hx Immunizations Up To Date Tetanus Booster (TDap): Less than 5yrs PED Vaccines UTD: Yes First/Initial COVID19 Vaccinat: J AND J NOVEMBER 2020 Seasonal Allergies Seasonal Allergies: Yes Past Medical History Surgeries: Yes (DENTAL;UD;L SHOULDER ARTHROSCOPY-TORN LABRUM x2;OVARIAN CYSTECTOMY;R KNEE ) Gallbladder, Orthopedic, Tonsillectomy Respiratory: Yes Asthma Cardiac: No Neurological: No Reproductive Disorders: Yes (LEFT OVARIAN CYST) Female Reproductive Disorders: Denies, Ovarian Cyst Sexually Transmitted Disease: No HIV/AIDS: No Genitourinary: No Gastrointestinal: No Musculoskeletal: Yes (ORTHO SURGERIES) Endocrine: No HEENT: Yes (S/P TONSILLECTOMY) Tonsilitis Loss of Vision: Bilateral Cancer: No Psychosocial: Yes Anxiety, Depression Integumentary: No Blood Disorders: No Adverse Reaction/Blood Tranf: No (N/A) Family Medical History Other Conditions/Hx Physical Exam Vital Signs Capillary Refill : Height, Weight, BMI Height: 5'11.00" Weight: 190lbs. 0oz. 86.680408zl; 39.00 BMI Method:Stated General Appearance: WD/WN, no apparent distress HEENT: PERRL/EOMI, normal ENT inspection Neck: non-tender, full range of motion Respiratory: no respiratory distress, no accessory muscle use Gastrointestinal: normal bowel sounds, non tender Shoulder: normal inspection, non-tender Elbow/Forearm: normal inspection, non-tender Wrist: Yes normal inspection, Yes non-tender Hand: normal inspection, Right (None), soft tissue tenderness (Normal appearance normal capillary refill loss of sensation of the ulnar nerve distribution) Neurologic/Psychiatric: alert, normal mood/affect, oriented x 3 Skin: normal color, warm/dry Departure Impression Primary Impression: Right hand ulnar neuralgia Disposition: 01 HOME, SELF-CARE Condition: Stable Departure-Patient Inst. Decision time for Depature: 18:48 Referrals: TOMY SUAREZ MD (PCP/Family) Primary Care Physician Patient Instructions: NO INSTRUCTIONS GIVEN Add. Discharge Instructions: 1. Medication as infrequently as possible. Supplement with Tylenol and ibuprofen. Wear the splint at all times taking it off only to shower. Follow- up with orthopedics. Return to ER for any concerns. Scripts Hydrocodone/Acetaminophen (Hydrocodone-Acetamin 5-325 mg) 5 Mg-325 Mg Tablet 1 TAB PO Q6H PRN for PAIN-MODERATE (5-7), #10 TAB Prov: NILO NEW APRN 12/06/21 NILO NEW APRN Dec 06, 2021 18:51
[2021-12-06 19:10] VITALS: BP 114/76
== END ==
LOC: EDUNIT# 18:07 → ER 18:10
DX: M79.2 Neuralgia and neuritis, unspecified (principal)
CPT/HCPCS: 99282

== ENCOUNTER 2021-12-07 22:33 | Emergency (ER) | payer MEDICAID ==
[2021-12-07] MEDS ORDERED: ONDANSETRON 4 MG (ZOFRAN) ORAL DISSOLVE TAB PO ONE (23:15)
[2021-12-07] MEDS ORDERED: PANTOPRAZOLE 40 MG (PROTONIX) TAB PO ONE (23:15)
[2021-12-08] MEDS ORDERED: RX-ONDANSETRON 4 MG ODT (ZOFRAN) PPK #4 PO STA (00:03)
--- NOTE | 2021-12-08 00:04 | ED GI ---
General Chief Complaint: Abdominal/GI Problems Stated Complaint: VOMITING Nursing Triage Note: PT AMB TO RM 6 WITH C/O ABD PAIN AND VOMITTING TWICE SINCE 1899 Source of Information: Patient Allergies and Home Medications Allergies Coded Allergies: pseudoephedrine (Unverified Adverse Reaction, Mild, 05/21/18) Patient Home Medication List Albuterol Sulfate (Proair Hfa) 1 Puff Puff, 2 PUFF IH Q4H PRN for SHORTNESS OF BREATH, (Reported) Entered as Reported by: CHARO HEMPHILL on 05/01/18 0839 Budesonide/Formoterol Fumarate (Symbicort 160-4.5 Mcg Inhaler) 10.2 Gm Hfa.aer.ad, 2 PUFF IH BID, (Reported) Entered as Reported by: PERFECTO QUINTANA on 09/19/18 1144 Fluoxetine HCl (Fluoxetine HCl) 20 Mg Capsule, (Reported) Entered as Reported by: VIOLA JOEL on 08/30/19 0810 Hydrocodone/Acetaminophen (Hydrocodone-Acetamin 5-325 mg) 5 Mg-325 Mg Tablet, 1 TAB PO Q6H PRN for PAIN-MODERATE (5-7) Prescribed by: NILO NEW on 12/06/211906 Hydrocodone/Acetaminophen (Hydrocodone-Acetamin 5-325 mg) 5 Mg-325 Mg Tablet, 1 TAB PO Q4H PRN for PAIN-MODERATE (5-7) Prescribed by: NILO NEW on 12/06/211906 Omeprazole (Omeprazole) 40 Mg Capsule., (Reported) Entered as Reported by: VIOLA JOEL on 08/30/19 0810 Ondansetron (Ondansetron Odt) 4 Mg Tab.rapdis, 4 MG PO Q4H Prescribed by: SARAH LAROSE on 12/08/21 000 Pantoprazole Sodium (Protonix) 40 Mg Tablet.dr, 40 MG PO DAILY Prescribed by: SARAH LAROSE on 12/08/216 [Bcp] , (Reported) Entered as Reported by: JAX MAGALLANES on 12/31/20 1140 Past Ogbvrra-Soimpe-Btdawk Hx Patient Social History Tobacco Use?: No Use of E-Cig and/or Vaping dev: No Substance use?: No Alcohol Use?: No Pt feels they are or have been: No Immunizations Up To Date Tetanus Booster (TDap): Less than 5yrs PED Vaccines UTD: Yes First/Initial COVID19 Vaccinat: ERICA NOVEMBER 2020 COVID19 Vaccine Submarine Diver: ERICA Seasonal Allergies Seasonal Allergies: Yes Past Medical History Surgeries: Yes (DENTAL;UD;L SHOULDER ARTHROSCOPY-TORN LABRUM x2;OVARIAN CYSTECTOMY;R KNEE ) Gallbladder, Orthopedic, Tonsillectomy Respiratory: Yes Asthma Cardiac: No Neurological: No Reproductive Disorders: Yes (LEFT OVARIAN CYST) Female Reproductive Disorders: Denies, Ovarian Cyst Sexually Transmitted Disease: No HIV/AIDS: No Genitourinary: No Gastrointestinal: No Musculoskeletal: Yes (ORTHO SURGERIES) Endocrine: No HEENT: Yes (S/P TONSILLECTOMY) Tonsilitis Loss of Vision: Bilateral Cancer: No Psychosocial: Yes Anxiety, Depression Integumentary: No Blood Disorders: No Adverse Reaction/Blood Tranf: No (N/A) Family Medical History Other Conditions/Hx Physical Exam Vital Signs Vital Signs - First Documented 12/07/21 22:47 Temp 36.8 Pulse 86 Resp 18 B/P (MAP) 134/100 (111) Capillary Refill : Height/Weight/BMI Height: 5'11.00" Weight: 190lbs. 0oz. 86.897999jh; 36.00 BMI Method:Stated Progress/Results/Core Measures Results/Orders Lab Results Laboratory Tests Test 12/07/21 22:55 Range/Units Urine Color YELLOW Urine Clarity CLEAR Urine pH 6.0 5-9 Urine Specific [place] <=1.005 1.016-1.022 Urine Protein NEGATIVE NEGATIVE Urine Glucose (UA) NEGATIVE NEGATIVE Urine Ketones NEGATIVE NEGATIVE Urine Nitrite NEGATIVE NEGATIVE Urine Bilirubin NEGATIVE NEGATIVE Urine Urobilinogen 0.2 < = 1.0 MG/DL Urine Leukocyte Esterase 2+ H NEGATIVE Urine RBC (Auto) NEGATIVE NEGATIVE Urine RBC NONE /HPF Urine WBC 0-2 /HPF Urine Squamous Epithelial Cells 2-5 /HPF Urine Crystals NONE /LPF Urine Bacteria TRACE /HPF Urine Casts NONE /LPF Urine Mucus NEGATIVE /LPF Urine Culture Indicated NO Urine Test NEGATIVE NEGATIVE My Orders Orders - SARAH LAROSE DO Ondansetron Oral Dissolve Tab (Zofran (12/07/21 23:15) Pantoprazole Tablet (Protonix Tablet) (4/20/22 23:15) Rx-Ondansetron Po (Rx-Zofran Po) (12/08/21 00:03) Hcg,Qualitative Urine (12/08/21 00:04) Ua Culture If Indicated (12/08/21 00:04) Medications Given in ED Current Medications Medications Dose Ordered Sig/Prabhakar Route Start Time Stop Time Status Last Admin Dose Admin Ondansetron HCl 4 mg ONCE ONCE PO 12/07/21 23:15 12/07/21 23:16 DC 12/07/21 23:22 4 MG Pantoprazole Sodium 40 mg ONCE ONCE PO 12/07/21 23:15 12/07/21 23:16 DC 12/07/21 23:22 40 MG Vital Signs/I&O 12/07/21 22:47 Temp 36.8 Pulse 86 Resp 18 B/P (MAP) 134/100 (111) Blood Pressure Mean: 111 Departure Impression Primary Impression: N&V (nausea and vomiting) Disposition: 01 HOME, SELF-CARE Condition: Improved Departure-Patient Inst. Decision time for Depature: 00:03 Referrals: TOMY SUAREZ MD (PCP/Family) Primary Care Physician Patient Instructions: Nausea and Vomiting, Adult (DC) Add. Discharge Instructions: CLEAR LIQUIDS--WATER, BROTH, JELLO, GATORADE TOMORROW IF YOU FEEL BETTER, ADD BRATS DIET TO CLEAR LIQUIDS--BANANAS, RICE, APPLESAUCE, TOAST, SALTINES FOLLOW UP WITH DR. SUAREZ IN 1-2 DAYS IF NO BETTER, RETURN TO ER IF WORSE All discharge instructions reviewed with patient and/or family. Voiced understanding. Scripts Pantoprazole Sodium (Protonix) 40 Mg Tablet. 40 MG PO DAILY, #15 TAB Prov: SARAH LAROSE DO 12/08/21 Ondansetron (Ondansetron Odt) 4 Mg Tab.rapdis 4 MG PO Q4H for Nausea/Vomiting, #10 TAB Prov: SARAH LAROSE DO 12/08/21 SARAH LAROSE DO Dec 08, 2021 00:04
[2021-12-08] MEDS ORDERED: PANT40TA2 PO (00:07)
[2021-12-08] MEDS ORDERED: ONDA4TAB11 PO (00:07)
[2021-12-08 00:13] LABS: BILIRUBIN,URINE NEGATIVE (NEGATIVE); CLARITY,URINE CLEAR; COLOR,URINE YELLOW; GLUCOSE, URINE (UA) NEGATIVE (NEGATIVE); KETONES,URINE NEGATIVE (NEGATIVE); LEUKOCYTE ESTERASE ,URINE 2+ (NEGATIVE); NITRITE,URINE NEGATIVE (NEGATIVE); PROTEIN,URINE NEGATIVE (NEGATIVE)
[2021-12-08 00:24] LABS: BACTERIA,URINE TRACE /HPF; WBC,URINE 0-2 /HPF
[2021-12-08 00:30] VITALS: BP 124/90
== END 2021-12-08 00:32 | disposition home or self-care (01) ==
LOC: EDUNIT# 22:33 → ER 22:34
DX: R11.2 Nausea with vomiting, unspecified (principal)
CPT/HCPCS: 81000; 84703; 99283

== ENCOUNTER 2022-06-17 19:31 | Emergency (ER) | payer MEDICAID ==
[~2022-06-17] VITALS: Ht 180 cm; Wt 118.0 kg
[~2022-06-17 19:31] MED LIST changes: +ALBU8.5H6 IH; -RT-ALBUINH IH
[2022-06-17] MEDS ORDERED: MELO15TA39 (19:44)
[2022-06-17] MEDS ORDERED: UBRO100T (19:44)
[2022-06-17] MEDS ORDERED: NYST1000 (19:44)
[2022-06-17] MEDS ORDERED: PROM12.511 (19:44)
[2022-06-17] MEDS ORDERED: CARI6CAP (19:44)
[2022-06-17] MEDS ORDERED: ANTACID SUSP 30 ML UDC (MYLANTA) PO ONE (19:45)
[2022-06-17] MEDS ORDERED: HYOSCYAMINE 0.125 MG (LEVSIN) TAB PO ONE (19:45)
--- NOTE | 2022-06-17 19:45 | ED General ---
General Chief Complaint: Cough/Cold/Flu Symptoms Stated Complaint: SORE THROAT,FEVER Source of Information: Patient Exam Limitations: No Limitations History of Present Illness Date Seen by Provider: Jun 17, 2022 Time Seen by Provider: 19:40 Initial Comments Patient is a 21-year-old female who presents to the emergency department with sore throat, diffuse abdominal pain, nausea, and diarrhea that began to 4 days ago. Patient was seen in a clinic earlier in her course of illness where she was prescribed promethazine which she states did help her nausea some. She states her other symptoms have persisted. She states she has not had any vomiting today but states she has had a few episodes of loose stools. She st ates her throat pain is worse when she swallows. She has not had a fever today. She states she has also been rotating Tylenol and ibuprofen for symptom control. Allergies and Home Medications Allergies Coded Allergies: pseudoephedrine (Unverified Adverse Reaction, Mild, 05/21/18) Patient Home Medication List Home Medication List Reviewed: Yes Albuterol Sulfate (Proair Hfa) 1 Puff Puff, 2 PUFF IH Q4H PRN for SHORTNESS OF BREATH, (Reported) Entered as Reported by: CHARO HEMPHILL on 05/01/18 0839 Budesonide/Formoterol Fumarate (Symbicort 160-4.5 Mcg Inhaler) 10.2 Gm Hfa.aer.ad, 2 PUFF IH BID, (Reported) Entered as Reported by: PERFECTO QUINTANA on 09/19/18 1144 Cariprazine Hydrochloride (Vraylar) 6 Mg Capsule, (Reported) Entered as Reported by: DOMINGO PEREZ on 06/17/221943 Last Action: New Order Fluoxetine HCl (Fluoxetine HCl) 20 Mg Capsule, (Reported) Entered as Reported by: VIOLA JOEL on 08/30/19 0810 Hyoscyamine Sulfate (Levsin-Sl) 0.125 Mg Tab.subl, 0.125 MG SL TID PRN for CRAMPS Prescribed by: Mandeep Beckwith on 06/17/222039 Meloxicam (Meloxicam) 15 Mg Tablet, (Reported) Entered as Reported by: DOMINGO PEREZ on 06/17/221943 Last Action: New Order Nystatin (Nystatin) 100,000 Unit/Ml Oral.susp, (Reported) Entered as Reported by: DOMINGO PEREZ on 06/17/221943 Last Action: New Order Omeprazole (Omeprazole) 40 Mg Capsule.dr, 40 MG PO DAILY Prescribed by: Mandeep Beckwith on 06/17/222039 Ondansetron (Ondansetron Odt) 4 Mg Tab.rapdis, 4 MG SL Q4H PRN for NAUSEA/VOMITING Prescribed by: Mandeep Beckwith on 06/17/222039 Pantoprazole Sodium (Protonix) 40 Mg Tablet.dr, 40 MG PO DAILY Prescribed by: SARAH LAROSE on 12/08/216 Promethazine HCl (Promethazine HCl) 12.5 Mg Tablet, (Reported) Entered as Reported by: DOMINGO PEREZ on 06/17/221943 Last Action: New Order Ubrogepant (Ubrelvy) 100 Mg Tablet, (Reported) Entered as Reported by: DOMINGO PEREZ on 06/17/221943 Last Action: New Order [Bcp] , (Reported) Entered as Reported by: JAX MAGALLANES on 12/31/20 1140 Discontinued Medications Hydrocodone/Acetaminophen (Hydrocodone-Acetamin 5-325 mg) 5 Mg-325 Mg Tablet, 1 TAB PO Q6H PRN for PAIN-MODERATE (5-7) Discontinued Reason: No Longer Taking Prescribed by: NILO NEW on 12/06/211906 Last Action: Discontinued Hydrocodone/Acetaminophen (Hydrocodone-Acetamin 5-325 mg) 5 Mg-325 Mg Tablet, 1 TAB PO Q4H PRN for PAIN-MODERATE (5-7) Discontinued Reason: No Longer Taking Prescribed by: NILO NEW on 12/06/211906 Last Action: Discontinued Omeprazole (Omeprazole) 40 Mg Capsule.dr, (Reported) Discontinued Reason: No Longer Taking Entered as Reported by: VIOLA JOEL on 08/30/19 0810 Last Action: Discontinued Ondansetron (Ondansetron Odt) 4 Mg Tab.rapdis, 4 MG PO Q4H Discontinued Reason: No Longer Taking Prescribed by: SARAH LAROSE on 12/08/216 Last Action: Discontinued Review of Systems Review of Systems Constitutional: see HPI EENTM: see HPI Respiratory: no symptoms reported Cardiovascular: no symptoms reported Gastrointestinal: see HPI Genitourinary: no symptoms reported Past Jvkknia-Pxgfhg-Dzidox Hx Immunizations Up To Date Tetanus Booster (TDap): Less than 5yrs PED Vaccines UTD: Yes First/Initial COVID19 Vaccinat: J AND J NOVEMBER 2020 Seasonal Allergies Seasonal Allergies: Yes Past Medical History Surgeries: Yes (DENTAL;UD;L SHOULDER ARTHROSCOPY-TORN LABRUM x2;OVARIAN CYSTECTOMY;R KNEE ) Gallbladder, Orthopedic, Tonsillectomy Respiratory: Yes Asthma Cardiac: No Neurological: No Reproductive Disorders: Yes (LEFT OVARIAN CYST) Female Reproductive Disorders: Denies, Ovarian Cyst Sexually Transmitted Disease: No HIV/AIDS: No Genitourinary: No Gastrointestinal: No Musculoskeletal: Yes (ORTHO SURGERIES) Endocrine: No HEENT: Yes (S/P TONSILLECTOMY) Tonsilitis Loss of Vision: Bilateral Cancer: No Psychosocial: Yes Anxiety, Depression Integumentary: No Blood Disorders: No Adverse Reaction/Blood Tranf: No (N/A) Family Medical History Other Conditions/Hx Physical Exam Vital Signs Vital Signs - First Documented 06/17/22 19:34 Temp 36.6 Pulse 94 Resp 16 B/P (MAP) 131/94 (106) Pulse Ox 98 O2 Delivery Room Air Capillary Refill : Height, Weight, BMI Height: 5'11.00" Weight: 190lbs. 0oz. [id number]; 36.00 BMI Method:Stated General Appearance: No Apparent Distress, WD/WN HEENT: PERRL/EOMI, TMs Normal, Normal ENT Inspection, Pharynx Normal Neck: Full Range of Motion, Normal Inspection, Non Tender, Supple Respiratory: Chest Non Tender, Lungs Clear, Normal Breath Sounds, No Accessory Muscle Use, No Respiratory Distress Cardiovascular: Regular Rate, Rhythm Gastrointestinal: Normal Bowel Sounds, No Organomegaly, No Pulsatile Mass, Non Tender, Soft Extremity: Normal Capillary Refill, Normal Inspection Neurologic/Psychiatric: Alert, Oriented x3, No Motor/Sensory Deficits, Normal Mood/Affect Progress/Results/Core Measures Suspected Sepsis SIRS Temperature: Pulse: Respiratory Rate: Blood Pressure / Mean: Results/Orders Lab Results Laboratory Tests Test 06/17/22 19:50 06/17/22 19:55 Range/Units Group A Streptococcus Screen NEGATIVE NEGATIVE Urine Color YELLOW Urine Clarity SL CLOUDY Urine pH 5.5 5-9 Urine Specific [place] >=1.030 1.016-1.022 Urine Protein TRACE H NEGATIVE Urine Glucose (UA) NEGATIVE NEGATIVE Urine Ketones NEGATIVE NEGATIVE Urine Nitrite NEGATIVE NEGATIVE Urine Bilirubin 1+ H NEGATIVE Urine Urobilinogen 0.2 < = 1.0 MG/DL Urine Leukocyte Esterase NEGATIVE NEGATIVE Urine RBC (Auto) 3+ H NEGATIVE Urine RBC 0-2 /HPF Urine WBC 0-2 /HPF Urine Squamous Epithelial Cells 10-25 H /HPF Urine Renal Epithelial Cells NONE /HPF Urine Crystals NONE /LPF Urine Bacteria NEGATIVE /HPF Urine Casts NONE /LPF Urine Mucus NEGATIVE /LPF Urine Culture Indicated NO Urine Test NEGATIVE NEGATIVE My Orders Orders - BECKWITHMANDEEP ROUGH RICE TENDER Urinalysis (06/17/22 19:41) Hcg,Qualitative Urine (06/17/22 19:41) Rapid Strep A Screen (06/17/22 19:41) Antacid Suspension (Mylanta Suspension (06/17/22 19:45) Hyoscyamine Sl Tablet (Levsin Sl Tablet) (06/17/22 19:45) Ondansetron Oral Dissolve Tab (Zofran (06/17/22 20:45) Medications Given in ED Current Medications Medications Dose Ordered Sig/Prabhakar Route Start Time Stop Time Status Last Admin Dose Admin Al Hydrox/Mg Hydrox/Simethicone 30 ml ONCE ONCE PO 06/17/22 19:45 06/17/22 19:46 DC 06/17/22 19:49 30 ML Hyoscyamine Sulfate 0.125 mg ONCE ONCE PO 06/17/22 19:45 06/17/22 19:46 DC 06/17/22 19:49 0.125 MG Ondansetron HCl 4 mg ONCE ONCE PO 06/17/22 20:45 06/17/22 20:45 DC 06/17/22 20:40 4 MG Vital Signs/I&O 06/17/22 06/17/22 19:34 20:45 Temp 36.6 Pulse 94 81 Resp 16 B/P (MAP) 131/94 (106) 121/87 Pulse Ox 98 100 O2 Delivery Room Air Room Air Capillary Refill : Progress Note : Progress Note Patient is nontoxic and well-hydrated on exam. Vital signs are reassuring. Abdominal exam is reassuring without distention/rigidity or any focal tenderness to palpation. No adventitious lung sounds or gastric or breathing noted on exam. Oropharyngeal exam is largely unremarkable with only some mild redness noted. No findings consistent with peritonsillar abscess or deep space infection of the neck noted. No significant cervical adenopathy appreciated. Rapid strep test obtained which is negative. Urinalysis also obtained which is negative for any infectious process. Patient is not spilling any ketones. Patient had significant improvement in her symptoms after a dose of Maalox and Levsin. 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 Follow-up with PCP. Return precautions for urgent symptomology discussed. Patient verbalized understanding. Departure Impression Primary Impression: Viral syndrome Disposition: HOME, SELF-CARE Condition: Improved Departure-Patient Inst. Decision time for Depature: 20:35 Referrals: TOMY SUAREZ MD (PCP/Family) Primary Care Physician Patient Instructions: Viral Syndrome (DC) Scripts Omeprazole (Omeprazole) 40 Mg Capsule.dr 40 MG PO DAILY for 7 Days, #7 CAP Prov: MANDEEP BECKWITH APRN 06/17/22 Hyoscyamine Sulfate (Levsin-Sl) 0.125 Mg Tab.subl 0.125 MG SL TID PRN for CRAMPS for 5 Days, #10 TAB Prov: MANDEEP BECKWITH APRN 06/17/22 Ondansetron (Ondansetron Odt) 4 Mg Tab.rapdis 4 MG SL Q4H PRN for NAUSEA/VOMITING for 5 Days, #15 TAB Prov: MANDEEP BECKWITH APRN 06/17/22 MANDEEP BECKWITH APRN Jun 17, 2022 19:45
[2022-06-17 20:07] LABS: CLARITY,URINE SL CLOUDY; COLOR,URINE YELLOW; GLUCOSE, URINE (UA) NEGATIVE (NEGATIVE); KETONES,URINE NEGATIVE (NEGATIVE); LEUKOCYTE ESTERASE ,URINE NEGATIVE (NEGATIVE); NITRITE,URINE NEGATIVE (NEGATIVE); PH,URINE 5.5 (5-9); PROTEIN,URINE TRACE (NEGATIVE)
[2022-06-17 20:12] LABS: BILIRUBIN,URINE 1+ (NEGATIVE)
[2022-06-17 20:15] LABS: BACTERIA,URINE NEGATIVE /HPF; RBC,URINE 0-2 /HPF; WBC,URINE 0-2 /HPF
[2022-06-17] MEDS ORDERED: ONDA4TAB11 SL (20:40)
[2022-06-17] MEDS ORDERED: OMEP40CA6 PO (20:40)
[2022-06-17] MEDS ORDERED: HYOS0.1283 SL (20:40)
[2022-06-17 20:45] VITALS: BP 121/87
[2022-06-17] MEDS ORDERED: ONDANSETRON 4 MG (ZOFRAN) ORAL DISSOLVE TAB PO ONE (20:45)
== END 2022-06-17 20:45 | disposition home or self-care (01) ==
LOC: EDUNIT# 19:31 → ER 19:33
DX: B34.9 Viral infection, unspecified (principal); J02.9 Acute pharyngitis, unspecified; R11.0 Nausea; R19.7 Diarrhea, unspecified; R10.9 Unspecified abdominal pain; Z32.02 Encounter for pregnancy test, result negative; Z90.721 Acquired absence of ovaries, unilateral
CPT/HCPCS: 81000; 84703; 87430; 99283

== ENCOUNTER 2022-07-17 08:04 | Emergency (ER) | payer MEDICAID ==
[~2022-07-17] VITALS: Ht 177.8 cm; Wt 117.9 kg
[~2022-07-17 08:04] MED LIST changes: +CARI6CAP; +HYOS0.1283 SL; +MELO15TA39; +NYST1000; +OMEP40CA6 PO; +PROM12.511; +UBRO100T
[2022-07-17] MEDS ORDERED: FLUT9.9S NSEACH (10:21)
[2022-07-17] MEDS ORDERED: BENZ200C51 PO (10:21)
--- NOTE | 2022-07-17 10:21 | ED General ---
General Chief Complaint: Cough/Cold/Flu Symptoms Stated Complaint: CHEST CONGESTION | FEVER | COUGH Nursing Triage Note: PT AMB TO RM 9 WITH COMPLAINT OF COUGH X1 WEEK AND FEVER THAT STARTED SUNDAY. History of Present Illness Date Seen by Provider: Jul 17, 2022 Time Seen by Provider: 08:09 Initial Comments This 21-year-old young lady presents to the emergency room with cough x1 week. Fever started on Sunday the . 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 She additionally complains of congestion and headache. She reports temperature of 101 at home. She has been treated with Tylenol p.o. and cool showers. Her primary care provider is Dr. Araujo. She uses an albuterol inhaler and nebulizer for asthma treatments. Allergies and Home Medications Allergies Coded Allergies: pseudoephedrine (Unverified Adverse Reaction, Mild, 05/21/18) Patient Home Medication List Home Medication List Reviewed: Yes Albuterol Sulfate (Ventolin Hfa) 1 Puff Puff, 2 PUFF IH Q4H PRN for SHORTNESS OF BREATH, (Reported) Entered as Reported by: CHARO HEMPHILL on 05/01/18 0839 Benzonatate (Benzonatate) 200 Mg Capsule, 200 MG PO TID PRN for COUGH Prescribed by: HANS GRECO on 07/17/22 1021 Budesonide/Formoterol Fumarate (Symbicort 160-4.5 Mcg Inhaler) 10.2 Gm Hfa.aer.ad, 2 PUFF IH BID, (Reported) Entered as Reported by: PERFECTO QUINTANA on 09/19/18 1144 Cariprazine Hydrochloride (Vraylar) 6 Mg Capsule, (Reported) Entered as Reported by: DOMINGO PEREZ on 06/17/22 1944 Fluoxetine HCl (Fluoxetine HCl) 20 Mg Capsule, (Reported) Entered as Reported by: VIOLA JOEL on 08/30/19 0810 Fluticasone Propionate (Flonase Allergy Relief) 50 Mcg/Actuation [place].susp, 2 SPRAY NSEACH DAILY Prescribed by: HANS GRECO on 07/17/22 1021 Hyoscyamine Sulfate (Levsin-Sl) 0.125 Mg Tab.subl, 0.125 MG SL TID PRN for CRAMPS Prescribed by: Mandeep Beckwith on 06/17/222039 Meloxicam (Meloxicam) 15 Mg Tablet, (Reported) Entered as Reported by: DOMINGO PEREZ on 06/17/221943 Nystatin (Nystatin) 100,000 Unit/Ml Oral.susp, (Reported) Entered as Reported by: DOMINGO PEREZ on 06/17/221943 Omeprazole (Omeprazole) 40 Mg Capsule.dr, 40 MG PO DAILY Prescribed by: Mandeep Beckwith on 06/17/222039 Ondansetron (Ondansetron Odt) 4 Mg Tab.rapdis, 4 MG SL Q4H PRN for NAUSEA/VOMITING Prescribed by: Mandeep Beckwith on 06/17/222039 Pantoprazole Sodium (Protonix) 40 Mg Tablet.dr, 40 MG PO DAILY Prescribed by: SARAH LAROSE on 12/08/216 Promethazine HCl (Promethazine HCl) 12.5 Mg Tablet, (Reported) Entered as Reported by: DOMINGO PEREZ on 06/17/221943 Ubrogepant (Ubrelvy) 100 Mg Tablet, (Reported) Entered as Reported by: DOMINGO PEREZ on 06/17/221943 [Bcp] , (Reported) Entered as Reported by: JAX MAGALLANES on 12/31/20 1140 Review of Systems Review of Systems Constitutional: see HPI EENTM: see HPI Respiratory: see HPI Cardiovascular: no symptoms reported Gastrointestinal: no symptoms reported Genitourinary: no symptoms reported : No Musculoskeletal: no symptoms reported Skin: no symptoms reported Psychiatric/Neurological: No Symptoms Reported Hematologic/Lymphatic: No Symptoms Reported Immunological/Allergic: no symptoms reported Past Nnzsujh-Hvuzhi-Rezryw Hx Patient Social History Tobacco Use?: No Use of E-Cig and/or Vaping dev: No Substance use?: No Alcohol Use?: No Pt feels they are or have been: No Immunizations Up To Date Tetanus Booster (TDap): Less than 5yrs PED Vaccines UTD: Yes First/Initial COVID19 Vaccinat: J AND Zain NOVEMBER 2020 Second COVID19 Vaccination Sunil: Zain AND Zain NOVEMBER 2020 Third COVID19 Vaccination Date: J AND Zain NOVEMBER 2020 Seasonal Allergies Seasonal Allergies: Yes Past Medical History Surgery/Hospitalization HX: SHOULDER X2, CHOLECYSTECTOMY, KNEE, T/A, ASTHMA, GERD, ANXIETY/DEPRESSION Surgeries: Yes (DENTAL;UD;L SHOULDER ARTHROSCOPY-TORN LABRUM x2;OVARIAN CYSTECTOMY;R KNEE ) Adenoidectomy, Gallbladder, Orthopedic, Tonsillectomy Respiratory: Yes Asthma Cardiac: No Neurological: No Reproductive Disorders: Yes (LEFT OVARIAN CYST) Female Reproductive Disorders: Denies, Ovarian Cyst Sexually Transmitted Disease: No HIV/AIDS: No Genitourinary: No Gastrointestinal: No Musculoskeletal: Yes (ORTHO SURGERIES, Sim-Danlos syndrome) Endocrine: No HEENT: Yes (S/P TONSILLECTOMY) Tonsilitis Loss of Vision: Bilateral Cancer: No Psychosocial: Yes Anxiety, Depression Integumentary: No Blood Disorders: No Adverse Reaction/Blood Tranf: No (N/A) Family Medical History Other Conditions/Hx Physical Exam Vital Signs Vital Signs - First Documented 07/17/22 08:19 Temp 36.2 Pulse 98 Resp 20 B/P (MAP) 128/94 (105) Pulse Ox 99 O2 Delivery Room Air Capillary Refill : Less Than 3 Seconds Height, Weight, BMI Height: 5'11.00" Weight: 190lbs. 0oz. 86.020144qn; 37.00 BMI Method:Stated General Appearance: No Apparent Distress, WD/WN HEENT: PERRL/EOMI, TMs Normal, Normal ENT Inspection, Pharynx Normal Neck: Normal Inspection Respiratory: Lungs Clear, Normal Breath Sounds, No Accessory Muscle Use, Other (Prolonged expiratory phase with forced expiration) Cardiovascular: Regular Rate, Rhythm, No Edema, No Murmur Gastrointestinal: Non Tender, Soft Extremity: Normal Inspection, No Pedal Edema Neurologic/Psychiatric: Alert, Oriented x3, Normal Mood/Affect Skin: Normal Color, Warm/Dry Progress/Results/Core Measures Suspected Sepsis SIRS Temperature: Pulse: 98 Respiratory Rate: 20 Blood Pressure 128 /94 Mean: 105 Results/Orders Lab Results Laboratory Tests Test 07/17/22 08:22 Range/Units Influenza Type A (RT-PCR) Not Detected Not Detecte Influenza Type B (RT-PCR) Not Detected Not Detecte SARS-CoV-2 RNA (RT-PCR) Not Detected Not Detecte My Orders Orders - HANS CARDOZO MD Covid 19 Inhouse Test (07/17/22 08:09) Influenza A And B By Pcr (07/17/22 08:09) Vital Signs/I&O 07/17/22 07/17/22 07/17/22 08:19 08:19 10:30 Temp 36.2 36.2 Pulse 98 89 Resp 20 20 B/P (MAP) 128/94 (105) 125/86 Pulse Ox 99 99 O2 Delivery Room Air Room Air Room Air Capillary Refill : Less Than 3 Seconds Blood Pressure Mean: 105 Progress Note : Progress Note Exam and vital signs were relatively unremarkable. Viral swabs were negative. See discharge instructions for further discussion. Departure Impression Primary Impression: Upper respiratory infection Qualified Codes: J06.9 - Acute upper respiratory infection, unspecified Additional Impression: Asthma exacerbation Qualified Codes: J45.901 - Unspecified asthma with (acute) exacerbation Disposition: 01 HOME, SELF-CARE Condition: Stable Departure-Patient Inst. Decision time for Depature: 10:18 Referrals: TOMY ARAUJO MD (PCP/Family) Primary Care Physician Patient Instructions: Asthma, Adult ED, Upper Respiratory Infection ED Add. Discharge Instructions: Drink plenty of clear liquids to stay well-hydrated. You may continue using Tylenol (acetaminophen) up to 1000 mg every 6 hours as needed for discomfort or fevers. Continue using your inhaled medications as previously directed for asthma exacerbation. You may use Flonase (fluticasone) nasal spray to help with nasal congestion and drainage. Use Tessalon Perles as prescribed for cough. You may additionally use dextromethorphan (DM) and/or guaifenesin [id number] for cough. Return to care if you have worsening symptoms despite following these instructions. All discharge instructions reviewed with patient and/or family. Voiced understanding. Scripts Fluticasone Propionate (Flonase Allergy Relief) 50 Mcg/Actuation [place].susp 2 SPRAY NSEACH DAILY, #1 EACH 2 SPRAYS PER NOSTRIL DAILY X 2 DAYS THEN 1 SPRAY DAILY Prov: HANS CARDOZO MD 07/17/22 Benzonatate (Benzonatate) 200 Mg Capsule 200 MG PO TID PRN for COUGH, #20 CAP Prov: HANS CARDOZO MD 07/17/22 Work/School Note: Work Release Form Date Seen in the Emergency Department: Jul 17, 2022 Return to Work: Jul 19, 2022 Restrictions: Return-No Fever (24hrs) HANS CARDOZO MD Jul 17, 2022 10:21
[2022-07-17 10:30] VITALS: BP 125/86
== END 2022-07-17 10:30 | disposition home or self-care (01) ==
LOC: EDUNIT# 08:04 → ER 08:06
DX: J45.901 Unspecified asthma with (acute) exacerbation (principal); J06.9 Acute upper respiratory infection, unspecified; Z20.822 Contact with and (suspected) exposure to COVID-19; Z28.310 Unvaccinated for COVID-19
CPT/HCPCS: 87636; 99283

== ENCOUNTER 2022-09-10 17:13 | Emergency (ER) | payer MEDICAID ==
[~2022-09-10] VITALS: Ht 177 cm; Wt 117.9 kg
[~2022-09-10 17:13] MED LIST changes: +BENZ200C51 PO; +FLUT9.9S NSEACH
[2022-09-10] MEDS ORDERED: LIDOCAINE 2% VISCOUS 15 ML UDC PO ONE (17:45)
[2022-09-10] MEDS ORDERED: ONDANSETRON 4 MG (ZOFRAN) ORAL DISSOLVE TAB SL ONE (17:45)
[2022-09-10] MEDS ORDERED: ALBU2.5V4 INH (18:12)
[2022-09-10] MEDS ORDERED: ONDA4TAB11 SL (18:12)
[2022-09-10] MEDS ORDERED: BENZ200C51 PO (18:12)
--- NOTE | 2022-09-10 18:12 | ED General ---
General Chief Complaint: COVID19 Suspect/Confirmed Stated Complaint: COUGH / CONGESTION / SORE THROAT / SOA /FEVER Nursing Triage Note: PT PRESENTS TO ED VIA POV FROM HOME ACCOMPANIED BY MOTHER WITH COMPLAINTS OF COUGH X 3 DAYS, FEVER/CHILLS STARTING LAST NIGHT. SORE THROAT STARTING TODAY AND SOA. PT MOTHER REPORTS SHE HAS ALSO BEEN SICK RECENTLY BUT TESTED NEGATIVE FOR COVID. Source of Information: Patient Exam Limitations: No Limitations History of Present Illness Date Seen by Provider: Sep 10, 2022 Time Seen by Provider: 17:06 Initial Comments This 21-year-old young lady presents to the emergency room with 3 days of flulike symptoms including low-grade fevers, chills, sore throat, asthma exacerbation, cough, and nausea. She has tried taking TheraFlu, Mucinex, Zyrtec, and Flonase. Allergies and Home Medications Allergies Coded Allergies: pseudoephedrine (Unverified Adverse Reaction, Mild, 05/21/18) Patient Home Medication List Home Medication List Reviewed: Yes Albuterol Sulfate (Ventolin Hfa) 1 Puff Puff, 2 PUFF IH Q4H PRN for SHORTNESS OF BREATH, (Reported) Entered as Reported by: CHARO HEMPHILL on 05/01/18 0839 Albuterol Sulfate (Albuterol Sulfate) 2.5 Mg/3 Ml (0.083 %) Vial.neb, 2.5 MG INH Q4H PRN for WHEEZING Prescribed by: HANS GRECO on 09/10/221811 Benzonatate (Benzonatate) 200 Mg Capsule, 200 MG PO TID PRN for COUGH Prescribed by: HANS GRECO on 07/17/22 1021 Benzonatate (Benzonatate) 200 Mg Capsule, 200 MG PO TID Prescribed by: HANS GRECO on 09/10/22 181 Budesonide/Formoterol Fumarate (Symbicort 160-4.5 Mcg Inhaler) 10.2 Gm Hfa.ae r.ad, 2 PUFF IH BID, (Reported) Entered as Reported by: PERFECTO QUINTANA on 09/19/18 1144 Cariprazine Hydrochloride (Vraylar) 6 Mg Capsule, (Reported) Entered as Reported by: DOMINGO PEREZ on 10/1943 Fluoxetine HCl (Fluoxetine HCl) 20 Mg Capsule, (Reported) Entered as Reported by: VIOLA JOEL on 08/30/19 0810 Fluticasone Propionate (Flonase Allergy Relief) 50 Mcg/Actuation [place].susp, 2 SPRAY NSEACH DAILY Prescribed by: HANS GRECO on 07/17/22 1021 Hyoscyamine Sulfate (Levsin-Sl) 0.125 Mg Tab.subl, 0.125 MG SL TID PRN for CRAMPS Prescribed by: Mandeep Beckwith on 06/17/222039 Meloxicam (Meloxicam) 15 Mg Tablet, (Reported) Entered as Reported by: DOMINGO PEREZ on 06/17/221943 Nystatin (Nystatin) 100,000 Unit/Ml Oral.susp, (Reported) Entered as Reported by: DOMINGO PEREZ on 06/17/221943 Omeprazole (Omeprazole) 40 Mg Capsule.dr, 40 MG PO DAILY Prescribed by: Mandeep Beckwith on 06/17/222039 Ondansetron (Ondansetron Odt) 4 Mg Tab.rapdis, 4 MG SL Q4H PRN for NAUSEA/VOMITI NG Prescribed by: Mandeep Beckwith on 06/17/222039 Ondansetron (Ondansetron Odt) 4 Mg Tab.rapdis, 4 MG SL Q4H PRN for NAUSEA/VOMITING Prescribed by: HANS GRECO on 09/10/22 181 Pantoprazole Sodium (Protonix) 40 Mg Tablet.dr, 40 MG PO DAILY Prescribed by: SARAH LAROSE on 12/08/21 000 Promethazine HCl (Promethazine HCl) 12.5 Mg Tablet, (Reported) Entered as Reported by: DOMINGO PEREZ on 06/17/221943 Ubrogepant (Ubrelvy) 100 Mg Tablet, (Reported) Entered as Reported by: DOMINGO PEREZ on 06/17/221943 [Bcp] , (Reported) Entered as Reported by: JAX MAGALLANES on 12/31/20 1140 Review of Systems Review of Systems Constitutional: see HPI EENTM: see HPI Respiratory: see HPI Cardiovascular: no symptoms reported Gastrointestinal: see HPI Genitourinary: no symptoms reported : No Musculoskeletal: see HPI Skin: no symptoms reported Psychiatric/Neurological: No Symptoms Reported Hematologic/Lymphatic: No Symptoms Reported Immunological/Allergic: no symptoms reported Past Tiaxglt-Tbzjus-Pzcxha Hx Patient Social History Tobacco Use?: No Use of E-Cig and/or Vaping dev: No Substance use?: No Alcohol Use?: No Pt feels they are or have been: No Immunizations Up To Date Tetanus Booster (TDap): Less than 5yrs PED Vaccines UTD: Yes First/Initial COVID19 Vaccinat: November 2020 Second COVID19 Vaccination Sunil: November 2020 Third COVID19 Vaccination Date: November 2020 Seasonal Allergies Seasonal Allergies: Yes Past Medical History Surgery/Hospitalization HX: SHOULDER X2, CHOLECYSTECTOMY, KNEE, T/A, ASTHMA, GERD, ANXIETY/DEPRESSION, SCHIZOPHRENIA, ADHD, BIPOLAR, SIM-DANLOS SYDROME Surgeries: Yes (DENTAL;UD;L SHOULDER ARTHROSCOPY-TORN LABRUM x2;OVARIAN CYSTECTOMY;R KNEE ) Abdominal (Ovarian cystectomy), Adenoidectomy, Gallbladder, Orthopedic, Tonsillectomy Respiratory: Yes Asthma Cardiac: No Neurological: No Reproductive Disorders: Yes (LEFT OVARIAN CYST) Female Reproductive Disorders: Denies, Ovarian Cyst Sexually Transmitted Disease: No HIV/AIDS: No Genitourinary: No Gastrointestinal: No Musculoskeletal: Yes (ORTHO SURGERIES, Sim-Danlos syndrome) Endocrine: Yes (Obesity) HEENT: Yes (S/P TONSILLECTOMY) Tonsilitis Loss of Vision: Bilateral Cancer: No Psychosocial: Yes Anxiety, Schizophrenia, Depression Integumentary: No Blood Disorders: No Adverse Reaction/Blood Tranf: No (N/A) Family Medical History Other Conditions/Hx Physical Exam Vital Signs Vital Signs - First Documented 09/10/22 17:23 Temp 37.0 Pulse 98 Resp 16 B/P (MAP) 121/90 (100) Pulse Ox 98 Capillary Refill : Less Than 3 Seconds Height, Weight, BMI Height: 5'11.00" Weight: 190lbs. 0oz. 86.313241ih; 37.00 BMI Method:Stated General Appearance: No Apparent Distress, WD/WN, Obese, Other (Somewhat ill- appearing) HEENT: PERRL/EOMI, TMs Normal, Normal ENT Inspection, Pharynx Normal; No Pharyngeal Erythema Neck: Normal Inspection Respiratory: Lungs Clear, Normal Breath Sounds, No Accessory Muscle Use, No Respiratory Distress; No Crackles, No Wheezing Cardiovascular: Regular Rate, Rhythm, No Edema, No Murmur Gastrointestinal: Non Tender, Soft Neurologic/Psychiatric: Alert, Oriented x3, No Motor/Sensory Deficits, Normal Mood/Affect Skin: Normal Color, Warm/Dry Progress/Results/Core Measures Suspected Sepsis SIRS Temperature: Pulse: 98 Respiratory Rate: 16 Blood Pressure 121 /90 Mean: 100 Results/Orders Lab Results Laboratory Tests Test 09/10/22 17:24 Range/Units Influenza Type A (RT-PCR) Not Detected Not Detecte Influenza Type B (RT-PCR) Not Detected Not Detecte SARS-CoV-2 RNA (RT-PCR) Not Detected Not Detecte My Orders Orders - HANS CARDOZO MD Covid 19 Inhouse Test (09/10/22 17:16) Influenza A And B By Pcr (09/10/22 17:16) Ondansetron Oral Dissolve Tab (Zofran (09/10/22 17:45) Lidocaine 2% Viscous 15 Ml (Xylocaine Vi (09/10/22 17:45) Medications Given in ED Current Medications Medications Dose Ordered Sig/Prabhakar Route Start Time Stop Time Status Last Admin Dose Admin Lidocaine HCl 5 ml ONCE ONCE PO 09/10/22 17:45 09/10/22 17:46 DC 09/10/22 17:40 5 ML Ondansetron HCl 4 mg ONCE ONCE SL 09/10/22 17:45 09/10/22 17:46 DC 09/10/22 17:40 4 MG Vital Signs/I&O 09/10/22 17:23 Temp 37.0 Pulse 98 Resp 16 B/P (MAP) 121/90 (100) Pulse Ox 98 Capillary Refill : Less Than 3 Seconds Blood Pressure Mean: 100 Progress Note : Progress Note Viral swabs were negative. Strep throat was not suspected as she has other flulike symptoms and visualization of the oropharynx was unremarkable. Patient was treated with Zofran and viscous lidocaine. Prescriptions were provided as below. See discharge instructions for further discussion. Discharge instructions were reviewed with patient. Vital signs were stable and unremarkable. Departure Impression Primary Impression: Flu-like symptoms Additional Impressions: Sore throat History of asthma Disposition: 01 HOME, SELF-CARE Condition: Improved Departure-Patient Inst. Decision time for Depature: 18:08 Referrals: TOMY SUAREZ MD (PCP/Family) Primary Care Physician Patient Instructions: Sore Throat in Adults, VIRAL SYNDROME Add. Discharge Instructions: Plenty of clear liquids to stay well-hydrated. You may take Zofran (ondansetron) as prescribed to help control nausea so that you may be able to hydrate well. For pain and fever you may take ibuprofen up to 600 mg every 6 hours and/or Tylenol (acetaminophen) up to 1000 mg every 6 hours as needed. Use of ibuprofen and acetaminophen together is very helpful for controlling pain. You may also use soothing liquids to calm your sore throat such as warm Jell-O water, warm tea, honey water or tea, etc. Avoid contact with others until your major symptoms have resolved and you are free of fever without fever reducing medications for at least 24 hours. Fever is considered 100.4 F and higher. Prescription medications provided include: Tessalon Perles (benzonatate) for cough suppression, Zofran (ondansetron) for nausea, and albuterol for your nebulizer machine. These prescriptions are primarily for symptom management, so you may cancel any of them if you do not end up needing them. You may continue your Flonase 2 sprays per nostril twice daily while you are sick to help with congestion and postnasal drainage. Return to care if you have worsening symptoms despite following these instructions. All discharge instructions reviewed with patient and/or family. Voiced understanding. Scripts Albuterol Sulfate (Albuterol Sulfate) 2.5 Mg/3 Ml (0.083 %) Vial.neb 2.5 MG INH Q4H PRN for WHEEZING, #50 EA 1 Refill Prov: HANS CARDOZO MD 09/10/22 Benzonatate (Benzonatate) 200 Mg Capsule 200 MG PO TID, #20 CAP Prov: HANS CARDOZO MD 09/10/22 Ondansetron (Ondansetron Odt) 4 Mg Tab.rapdis 4 MG SL Q4H PRN for NAUSEA/VOMITING, #10 TAB Prov: HANS CARDOZO MD 09/10/22 Work/School Note: School/Childcare Release Date Seen in the Emergency Department: Sep 10, 2022 Time Dismissed from Emergency Department: 18:15 Return to School: Sep 12, 2022 Restrictions: Return-No Fever (24hrs), Return-No Vomiting(24hrs) HANS CARDOZO MD Sep 10, 2022 18:11
[2022-09-10 18:16] VITALS: BP 112/66
== END 2022-09-10 18:16 | disposition home or self-care (01) ==
LOC: EDUNIT# 17:13 → ER 17:14
DX: J02.9 Acute pharyngitis, unspecified (principal); R09.81 Nasal congestion; R50.9 Fever, unspecified; E66.9 Obesity, unspecified; J45.909 Unspecified asthma, uncomplicated; Z20.822 Contact with and (suspected) exposure to COVID-19; Z68.37 Body mass index [BMI] 37.0-37.9, adult
CPT/HCPCS: 87636; 99283

== ENCOUNTER 2022-12-31 19:04 | Emergency (ER) | payer MEDICAID ==
[~2022-12-31] VITALS: Ht 180.3 cm; Wt 117.9 kg
[~2022-12-31 19:04] MED LIST changes: +ALBU2.5V4 INH; +MONT-47 PO; -MONT10TA21 PO
[2022-12-31] MEDS ORDERED: ACHD5005 PO (19:43)
--- NOTE | 2022-12-31 19:43 | ED Upper Extremity ---
General Chief Complaint: Upper Extremity Stated Complaint: RIGHT HAND PAIN Nursing Triage Note: PT A&OX3; PT AMBULATES TO ROOM WITHOUT ASSISTANCE OF ER STAFF; PT ADVISES THAT SHE HAS HAD NERVE PAIN IN HER R FOREARM/HAND THAT STARTED APPROX 5 YRS AGO; PT REPORTS THAT SHE HAS SEEN MULTIPLE PROVIDERS REGARDING PAIN AND IS SCHEDULED TO HAVE AN EMG ON SUNDAY WITH [facility] IN [place]; PT REPORTS PAIN HAS BECOME DEBILITATING Source: patient Exam Limitations: no limitations (ALYSE ABDUL APRN) History of Present Illness Date Seen by Provider: December 31, 2022 Time Seen by Provider: 19:27 Initial Comments 22-year-old female presents the ED with complaints of right hand pain. She has had this pain pain for the last 5 years, states its been worse over the last week. She states the pain is the same, just worse. Reports numbness and fifth digit, states this has not changed. She has seen multiple specialists for this including two Ortho providers, and neurology. She is scheduled to have electromyography this Sunday. She has been taking Tylenol and ibuprofen which has not provided relief. She reports that she used to be prescribed tramadol, but her primary care provider stopped prescribing it because it was not helping. Past medical history includes Sim-Danlos syndrome, asthma, GERD. She c urrently takes fluoxetine, omeprazole, and Depo. (ALYSE ABDUL APRN) Allergies and Home Medications Allergies Coded Allergies: pseudoephedrine (Unverified Adverse Reaction, Mild, 05/21/18) Patient Home Medication List Home Medication List Reviewed: Yes (ALYSE ABDUL APRN) Albuterol Sulfate (Ventolin Hfa) 1 Puff Puff, 2 PUFF IH Q4H PRN for SHORTNESS OF BREATH, (Reported) Entered as Reported by: CHARO HEMPHILL on 05/01/18 0839 Albuterol Sulfate (Albuterol Sulfate) 2.5 Mg/3 Ml (0.083 %) Vial.neb, 2.5 MG INH Q4H PRN for WHEEZING Prescribed by: HANS GRECO on 09/10/22 1812 Benzonatate (Benzonatate) 200 Mg Capsule, 200 MG PO TID PRN for COUGH Prescribed by: HANS GRECO on 07/17/22 1021 Benzonatate (Benzonatate) 200 Mg Capsule, 200 MG PO TID Prescribed by: HANS GRECO on 09/10/22 181 Budesonide/Formoterol Fumarate (Symbicort 160-4.5 Mcg Inhaler) 10.2 Gm Hfa.aer.ad, 2 PUFF IH BID, (Reported) Entered as Reported by: PERFECTO QUINTANA on 09/19/18 1144 Cariprazine Hydrochloride (Vraylar) 6 Mg Capsule, (Reported) Entered as Reported by: DOMINGO PEREZ on 06/17/221943 Fluoxetine HCl (Fluoxetine HCl) 20 Mg Capsule, (Reported) Entered as Reported by: VIOLA JOEL on 08/30/19 0810 Fluticasone Propionate (Flonase Allergy Relief) 50 Mcg/Actuation [place].susp, 2 SPRAY NSEACH DAILY Prescribed by: HANS GRECO on 07/17/22 102 Hydrocodone/Acetaminophen (Hydrocodone-Acetamin 5-325 mg) 5 Mg-325 Mg Tablet, 1 TAB PO Q4H PRN for PAIN-MODERATE (5-7) Prescribed by: Alyse Abdul on 12/31/221942 Hyoscyamine Sulfate (Levsin-Sl) 0.125 Mg Tab.subl, 0.125 MG SL TID PRN for CRAMPS Prescribed by: Mandeep Beckwith on 06/17/222039 Meloxicam (Meloxicam) 15 Mg Tablet, (Reported) Entered as Reported by: DOMINGO PEREZ on 06/17/221943 Nystatin (Nystatin) 100,000 Unit/Ml Oral.susp, (Reported) Entered as Reported by: DOMINGO PEREZ on 06/17/221943 Omeprazole (Omeprazole) 40 Mg Capsule.dr, 40 MG PO DAILY Prescribed by: Mandeep Beckwith on 06/17/222039 Ondansetron (Ondansetron Odt) 4 Mg Tab.rapdis, 4 MG SL Q4H PRN for NAUSEA/VOMITING Prescribed by: Mandeep Beckwith on 06/17/222039 Ondansetron (Ondansetron Odt) 4 Mg Tab.rapdis, 4 MG SL Q4H PRN for NAUSE A/VOMITING Prescribed by: HANS GRECO on 09/10/221811 Pantoprazole Sodium (Protonix) 40 Mg Tablet.dr, 40 MG PO DAILY Prescribed by: SARAH LAROSE on 12/08/216 Promethazine HCl (Promethazine HCl) 12.5 Mg Tablet, (Reported) Entered as Reported by: DOMINGO PEREZ on 06/17/221943 Ubrogepant (Ubrelvy) 100 Mg Tablet, (Reported) Entered as Reported by: DOMINGO PEREZ on 06/17/221943 [Bcp] , (Reported) Entered as Reported by: JAX MAGALLANES on 12/31/20 1140 Review of Systems Constitutional: no symptoms reported (ALYSE ABDUL APRN) Past Spnymkl-Kbumab-Dlnell Hx Patient Social History Tobacco Use?: No Use of E-Cig and/or Vaping dev: No Substance use?: No Alcohol Use?: No Pt feels they are or have been: No (ALYSE ABDUL APRN) Immunizations Up To Date Tetanus Booster (TDap): Less than 5yrs PED Vaccines UTD: Yes Influenza Vaccine Up-to-Date: Yes; Up-to-Date First/Initial COVID19 Vaccinat: 12/08 Second COVID19 Vaccination Sunil: J AND J NOVEMBER 2020 Third COVID19 Vaccination Date: J AND J NOVEMBER 2020 (ALYSE ABDUL APRN) Seasonal Allergies Seasonal Allergies: Yes (ALYSE ABDUL APRN) Past Medical History Surgery/Hospitalization HX: SHOULDER X2, CHOLECYSTECTOMY, KNEE, T/A, ASTHMA, GERD, ANXIETY/DEPRESSION, SCHIZOPHRENIA, ADHD, BIPOLAR, SIM-DANLOS SYDROME Surgeries: Yes (DENTAL;UD;L SHOULDER ARTHROSCOPY-TORN LABRUM x2;OVARIAN CYSTECTOMY;R KNEE ) Abdominal, Adenoidectomy, Gallbladder, Orthopedic, Tonsillectomy Respiratory: Yes Asthma Cardiac: No Neurological: No Last Menstrual Period: Oct 02, 2022 Reproductive Disorders: Yes (LEFT OVARIAN CYST) Female Reproductive Disorders: Denies, Ovarian Cyst Sexually Transmitted Disease: No HIV/AIDS: No Genitourinary: No Gastrointestinal: No Musculoskeletal: Yes (ORTHO SURGERIES, Sim-Danlos syndrome) Endocrine: Yes (Obesity) HEENT: Yes (S/P TONSILLECTOMY) Tonsilitis Loss of Vision: Bilateral Cancer: No Psychosocial: Yes Anxiety, Schizophrenia, Depression Integumentary: No Blood Disorders: No Adverse Reaction/Blood Tranf: No (N/A) (ALYSE ABDUL APRN) Family Medical History Other Conditions/Hx (ALYSE ABDUL APRN) Physical Exam Vital Signs Vital Signs - First Documented 12/31/22 19:15 Temp 36.8 Pulse 101 Resp 16 B/P (MAP) 118/80 (93) Pulse Ox 98 O2 Delivery Room Air (HANS CARDOZO MD) Vital Signs Capillary Refill : Less Than 3 Seconds (ALYSE ABDUL APRN) Height, Weight, BMI Height: 5'11.00" Weight: 190lbs. 0oz. 86.761541rp; 36.00 BMI Method:Stated General Appearance: WD/WN, no apparent distress Neck: supple, normal inspection Cardiovascular: regular rate, rhythm Respiratory: lungs clear, normal breath sounds, no respiratory distress, no accessory muscle use Wrist: Yes normal inspection, Yes non-tender, Yes no evidence of injury, Yes normal ROM Hand: normal inspection, non-tender, no evidence of injury, normal ROM, Right (Decreased sensation in fifth digit, sensation normal in other digits, cap refill less than 2 seconds, pulses intact) Neurologic/Psychiatric: alert, normal mood/affect Skin: normal color, warm/dry (ALYSE ABDUL APRN) Progress/Results/Core Measures Results/Orders Blood Pressure Mean: 93 Progress Progress Note : Progress Note Patient seen and evaluated, resting comfortably in recliner, no acute distress. Will prescribe her a take-home pack of [place] and a short prescription. Discharge instructions and return precautions provided. (ALYSE ABDUL APRN) Departure Impression Primary Impression: Hand pain, right Disposition: HOME, SELF-CARE Condition: Stable Departure-Patient Inst. Decision time for Depature: 19:41 (ALYSE ABDUL APRN) Referrals: TOMY SUAREZ MD (PCP/Family) Primary Care Physician Patient Instructions: Hand Pain Add. Discharge Instructions: Keep your appointment for this Sunday to have your EMG completed. Take pain medication as needed, it can cause constipation so only take when needed. You may take a stool softener to help prevent constipation. This pain medication may also make you sleepy. Return for worsening pain, worsening numbness and tingling, or any other new, concerning, or worsening symptoms. All discharge instructions reviewed with patient and/or family. Voiced understanding. Scripts Hydrocodone/Acetaminophen (Hydrocodone-Acetamin 5-325 mg) 5 Mg-325 Mg Tablet 1 TAB PO Q4H PRN for PAIN-MODERATE (5-7), #10 TAB 0 Refills Prov: ALYSE ABDUL APRN 12/31/22 ATTENDING PHYSICIAN NOTE: I was physically present as attending physician in the emergency department during the care of this patient, but I was not directly involved in the decision making or delivery of care for this patient. (HANS CARDOZO MD) ALYSE ABDUL APRN December 31, 2022 19:43 HANS CARDOZO MD January 02, 2023 19:22
[2022-12-31 19:47] VITALS: BP 116/81
== END 2022-12-31 19:47 | disposition home or self-care (01) ==
LOC: EDUNIT# 19:04 → ER 19:07
DX: M79.641 Pain in right hand (principal); E66.9 Obesity, unspecified; Z68.36 Body mass index [BMI] 36.0-36.9, adult
CPT/HCPCS: 99281

== ENCOUNTER 2023-01-07 10:50 | Emergency (ER) | payer MEDICAID ==
[~2023-01-07] VITALS: Ht 180 cm; Wt 130.0 kg
--- NOTE | 2023-01-07 11:12 | ED Upper Extremity ---
General Chief Complaint: Upper Extremity Stated Complaint: RIGHT HAND Nursing Triage Note: PT STATES RT HAND PAIN FROM A PINCHED NERVE Source: patient Exam Limitations: no limitations History of Present Illness Date Seen by Provider: January 07, 2023 Time Seen by Provider: 11:00 Initial Comments 22-year-old female presents the ER with complaints of right hand pain on the lateral side through the fourth and fifth digits. She has had this pain for the last 5 years. She recently had an EMG completed this past Sunday which showed a compressed ulnar nerve. She is waiting for the results to be sent to orthopedic doctor in [place]. She was seen here last Sunday for the same pain. She was prescribed Melvin, states she took the last of this on Sunday. She has been taking ibuprofen and Tylenol, since then without relief. She reports numbness in her fifth digit, states this is in the same, denies any change in this. Allergies and Home Medications Allergies Coded Allergies: pseudoephedrine (Unverified Adverse Reaction, Mild, 05/21/18) Patient Home Medication List Home Medication List Reviewed: Yes Albuterol Sulfate (Ventolin Hfa) 1 Puff Puff, 2 PUFF IH Q4H PRN for SHORTNESS OF BREATH, (Reported) Entered as Reported by: CHARO HEMPHILL on 05/01/18 0839 Albuterol Sulfate (Albuterol Sulfate) 2.5 Mg/3 Ml (0.083 %) Vial.neb, 2.5 MG INH Q4H PRN for WHEEZING Prescribed by: HANS GRECO on 09/10/22 181 Benzonatate (Benzonatate) 200 Mg Capsule, 200 MG PO TID PRN for COUGH Prescribed by: HANS GRECO on 07/17/22 1021 Benzonatate (Benzonatate) 200 Mg Capsule, 200 MG PO TID Prescribed by: HANS GRECO on 09/10/22 181 Budesonide/Formoterol Fumarate (Symbicort 160-4.5 Mcg Inhaler) 10.2 Gm Hfa.aer.ad, 2 PUFF IH BID, (Reported) Entered as Reported by: PERFECTO QUINTANA on 09/19/18 1144 Cariprazine Hydrochloride (Vraylar) 6 Mg Capsule, (Reported) Entered as Reported by: DOMINGO PEREZ on 06/17/221943 Fluoxetine HCl (Fluoxetine HCl) 20 Mg Capsule, (Reported) Entered as Reported by: VIOLA JOEL on 08/30/19 0810 Fluticasone Propionate (Flonase Allergy Relief) 50 Mcg/Actuation [place].susp, 2 SPRAY NSEACH DAILY Prescribed by: HANS GRECO on 07/17/22 1021 Hydrocodone/Acetaminophen (Hydrocodone-Acetamin 5-325 mg) 5 Mg-325 Mg Tablet, 1 TAB PO Q4H PRN for PAIN-MODERATE (5-7) Prescribed by: Alyse Abdul on 12/31/221942 Hyoscyamine Sulfate (Levsin-Sl) 0.125 Mg Tab.subl, 0.125 MG SL TID PRN for CRAMPS Prescribed by: Mandeep Beckwith on 06/17/222039 Meloxicam (Meloxicam) 15 Mg Tablet, (Reported) Entered as Reported by: DOMINGO PEREZ on 06/17/221943 Nystatin (Nystatin) 100,000 Unit/Ml Oral.susp, (Reported) Entered as Reported by: DOMINGO PEREZ on 06/17/221943 Omeprazole (Omeprazole) 40 Mg Capsule.dr, 40 MG PO DAILY Prescribed by: Mandeep Beckwith on 06/17/222039 Ondansetron (Ondansetron Odt) 4 Mg Tab.rapdis, 4 MG SL Q4H PRN for NAUSEA/VOMITING Prescribed by: Mandeep Beckwith on 06/17/222039 Ondansetron (Ondansetron Odt) 4 Mg Tab.rapdis, 4 MG SL Q4H PRN for NAUSEA/VOMITING Prescribed by: HANS GRECO on 09/10/22 181 Pantoprazole Sodium (Protonix) 40 Mg Tablet.dr, 40 MG PO DAILY Prescribed by: SARAH LAROSE on 12/08/216 Promethazine HCl (Promethazine HCl) 12.5 Mg Tablet, (Reported) Entered as Reported by: DOMINGO PEREZ on 06/17/221943 Ubrogepant (Ubrelvy) 100 Mg Tablet, (Reported) Entered as Reported by: DOMINGO PEREZ on 06/17/221943 [Bcp] , (Reported) Entered as Reported by: JAX MAGALLANES on 12/31/20 1140 Review of Systems Constitutional: no symptoms reported Musculoskeletal: other (Hand pain) Past Qhlvnln-Euojkg-Llwhcp Hx Patient Social History Tobacco Use?: No Substance use?: No Alcohol Use?: No Immunizations Up To Date Tetanus Booster (TDap): Less than 5yrs PED Vaccines UTD: Yes First/Initial COVID19 Vaccinat: 12/08 Second COVID19 Vaccination Sunil: J AND November 2020 Third COVID19 Vaccination Date: AND November 2020 COVID19 Vaccine Bulk Plant Agent: Delvin Seasonal Allergies Seasonal Allergies: Yes Past Medical History Surgery/Hospitalization HX: SHOULDER X2, CHOLECYSTECTOMY, KNEE, T/A, ASTHMA, GERD, ANXIETY/DEPRESSION, SCHIZOPHRENIA, ADHD, BIPOLAR, SIM-DANLOS SYDROME Surgeries: Yes (DENTAL;UD;L SHOULDER ARTHROSCOPY-TORN LABRUM x2;OVARIAN CYSTECTOMY;R KNEE ) Abdominal, Adenoidectomy, Gallbladder, Orthopedic, Tonsillectomy Respiratory: Yes Asthma Cardiac: No Neurological: No Reproductive Disorders: Yes (LEFT OVARIAN CYST) Female Reproductive Disorders: Denies, Ovarian Cyst Sexually Transmitted Disease: No HIV/AIDS: No Genitourinary: No Gastrointestinal: No Musculoskeletal: Yes (ORTHO SURGERIES, Sim-Danlos syndrome) Endocrine: Yes (Obesity) HEENT: Yes (S/P TONSILLECTOMY) Tonsilitis Loss of Vision: Bilateral Cancer: No Psychosocial: Yes Anxiety, Schizophrenia, Depression Integumentary: No Blood Disorders: No Adverse Reaction/Blood Tranf: No (N/A) Family Medical History Other Conditions/Hx Physical Exam Vital Signs Vital Signs - First Documented 01/07/23 10:56 Temp 36.9 Pulse 87 Resp 18 B/P (MAP) 132/87 (102) Pulse Ox 100 O2 Delivery Room Air Capillary Refill : Less Than 3 Seconds Height, Weight, BMI Height: 5'11.00" Weight: 190lbs. 0oz. [id number]; 40.00 BMI Method:Stated General Appearance: WD/WN, no apparent distress Neck: supple, normal inspection Cardiovascular: regular rate, rhythm Respiratory: lungs clear, normal breath sounds, no respiratory distress, no accessory muscle use Hand: normal inspection, non-tender, no evidence of injury, normal ROM, Right (Cap refill less than 2 seconds) Neurologic/Psychiatric: alert, normal mood/affect Skin: normal color, warm/dry Progress/Results/Core Measures Results/Orders My Orders Orders - ALYSE ABDUL APRN Hydrocodone/Apap 5/325 Tablet (Lortab 5 (01/07/23 11:15) Vital Signs/I&O 01/07/23 10:56 Temp 36.9 Pulse 87 Resp 18 B/P (MAP) 132/87 (102) Pulse Ox 100 O2 Delivery Room Air Blood Pressure Mean: 102 Progress Progress Note : Progress Note Patient seen evaluated, resting comfortably in recliner, no acute distress. Based on exam and symptoms, will give 1 dose of Melvin here now since patient states that this did help her pain. Patient instructed to follow-up with primary care provider regarding further prescriptions for Melvin. Discharge instructions and return precautions provided. Departure Impression Primary Impression: Hand pain, right Additional Impression: Ulnar nerve entrapment at right elbow Disposition: 01 HOME, SELF-CARE Condition: Stable Departure-Patient Inst. Decision time for Depature: 11:11 Referrals: TOMY ARAUJO MD (PCP/Family) Primary Care Physician Patient Instructions: Cubital Tunnel Syndrome (DC) Add. Discharge Instructions: Follow-up with Dr. Araujo to discuss prescription for Melvin. Return for any new, concerning, or worsening symptoms. All discharge instructions reviewed with patient and/or family. Voiced understanding. ALYSE ABDUL APRN January 07, 2023 11:12
[2023-01-07] MEDS ORDERED: HYDROcodone/APAP 5 MG/325 MG (LORTAB) TAB PO ONE (11:15)
[2023-01-07 11:19] VITALS: BP 132/87
== END 2023-01-07 11:19 | disposition home or self-care (01) ==
LOC: EDUNIT# 10:50 → ER 10:52
DX: G56.21 Lesion of ulnar nerve, right upper limb (principal); E66.9 Obesity, unspecified; Z68.41 Body mass index [BMI] 40.0-44.9, adult
CPT/HCPCS: 99283

== ENCOUNTER 2023-05-07 02:08 | Emergency (ER) | payer SELFPAY ==
[~2023-05-07] VITALS: Ht 180.3 cm; Wt 127.0 kg
--- NOTE | 2023-05-07 02:36 | ED General ---
General Chief Complaint: Dental Problems/Pain Stated Complaint: CRACKED TOOTH-PAINFUL Source of Information: Patient, Family Exam Limitations: No Limitations (ZONIA BROWER) History of Present Illness Date Seen by Provider: May 07, 2023 Time Seen by Provider: 02:27 Initial Comments 22yo F with h/o asthma, GERD, and Ehler Danlos Syndrome presents to the ED with mother for c/o dental pain that occurred 1 day ago. Pt states that she believes to have chipped her second molar possibly when chewing some food yesterday but is unsure. Pt states that a few days prior to this she noticed what she thought to be pieces of her fillings while eating. Pt rates her pain a 9/10. Pt has been tried taking ibuprofen (3 tabs, 3 hours ago), tylenol (2 tabs, 6 hours ago), and left over tramadol (2 hours ago) with no relief. Pt states that chewing exacerbates pain but that she is still able to eat. Pt says that she is going to call [facility] for a dental appointment today. Denies nausea, vomiting, fevers, chills, abd pain, CP, and SOA. Timing/Duration: 1 Day Severity: Mild Associated Systoms: Denies Symptoms (ZONIA BROWER) Allergies and Home Medications Allergies Coded Allergies: pseudoephedrine (Unverified Adverse Reaction, Mild, 05/21/18) Patient Home Medication List Home Medication List Reviewed: Yes (ZONIA BROWER) Home Medication List Reviewed: Yes (KRISTOFER WEAVER MD) Albuterol Sulfate (Ventolin Hfa) 1 Puff Puff, 2 PUFF IH Q4H PRN for SHORTNESS OF BREATH, (Reported) Entered as Reported by: CHARO HEMPHILL on 05/01/18 0839 Albuterol Sulfate (Albuterol Sulfate) 2.5 Mg/3 Ml (0.083 %) Vial.neb, 2.5 MG INH Q4H PRN for WHEEZING Prescribed by: HANS GRECO on 09/10/22 1812 Benzonatate (Benzonatate) 200 Mg Capsule, 200 MG PO TID PRN for COUGH Prescribed by: HANS GRECO on 07/17/22 1021 Benzonatate (Benzonatate) 200 Mg Capsule, 200 MG PO TID Prescribed by: HANS GRECO on 09/10/221811 Budesonide/Formoterol Fumarate (Symbicort 160-4.5 Mcg Inhaler) 10.2 Gm Hfa.aer.ad, 2 PUFF IH BID, (Reported) Entered as Reported by: PERFECTO QUINTANA on 09/19/18 1144 Cariprazine Hydrochloride (Vraylar) 6 Mg Capsule, (Reported) Entered as Reported by: DOMINGO PEREZ on 06/17/221943 Fluoxetine HCl (Fluoxetine HCl) 20 Mg Capsule, (Reported) Entered as Reported by: VIOLA JOEL on 08/30/19 0810 Fluticasone Propionate (Flonase Allergy Relief) 50 Mcg/Actuation [place].susp, 2 SPRAY NSEACH DAILY Prescribed by: HANS GRECO on 07/17/22 102 Hydrocodone/Acetaminophen (Hydrocodone-Acetamin 5-325 mg) 5 Mg-325 Mg Tablet, 1 TAB PO Q4H PRN for PAIN-MODERATE (5-7) Prescribed by: Alyse Fontanez on 12/31/221942 Hyoscyamine Sulfate (Levsin-Sl) 0.125 Mg Tab.subl, 0.125 MG SL TID PRN for CRAMPS Prescribed by: Mandeep Beckwith on 06/17/222039 Meloxicam (Meloxicam) 15 Mg Tablet, (Reported) Entered as Reported by: DOMINGO PEREZ on 06/17/221943 Nystatin (Nystatin) 100,000 Unit/Ml Oral.susp, (Reported) Entered as Reported by: DOMINGO PEREZ on 06/17/221943 Omeprazole (Omeprazole) 40 Mg Capsule.dr, 40 MG PO DAILY Prescribed by: Mandeep Beckwith on 06/17/222039 Ondansetron (Ondansetron Odt) 4 Mg Tab.rapdis, 4 MG SL Q4H PRN for NAUSEA/VOMITING Prescribed by: Mandeep Beckwith on 06/17/222039 Ondansetron (Ondansetron Odt) 4 Mg Tab.rapdis, 4 MG SL Q4H PRN for NAUSEA /VOMITING Prescribed by: HANS GRECO on 09/10/221811 Pantoprazole Sodium (Protonix) 40 Mg Tablet.dr, 40 MG PO DAILY Prescribed by: SARAH LAROSE on 12/08/21 0007 Penicillin V Potassium (Penicillin V Potassium) 500 Mg Tablet, 500 MG PO QID Prescribed by: KRISTOFER WEAVER on 05/07/23 0309 Promethazine HCl (Promethazine HCl) 12.5 Mg Tablet, (Reported) Entered as Reported by: DOMINGO PEREZ on 06/17/221943 Ubrogepant (Ubrelvy) 100 Mg Tablet, (Reported) Entered as Reported by: DOMINGO PEREZ on 06/17/221943 [Bcp] , (Reported) Entered as Reported by: JAX MAGALLANES on 12/31/20 1140 Review of Systems Review of Systems Constitutional: no symptoms reported EENTM: dental problems (tooth pain) Respiratory: no symptoms reported Cardiovascular: no symptoms reported Gastrointestinal: no symptoms reported Genitourinary: no symptoms reported Musculoskeletal: no symptoms reported Skin: no symptoms reported Psychiatric/Neurological: No Symptoms Reported Hematologic/Lymphatic: No Symptoms Reported Immunological/Allergic: no symptoms reported (ZONIA BROWER) All Other Systems Reviewed Negative Unless Noted: Yes (ZONIA BROWER) Past Wurljgz-Flwqar-Nzlxmh Hx Patient Social History Tobacco Use?: No Use of E-Cig and/or Vaping dev: No Substance use?: No Alcohol Use?: No Pt feels they are or have been: No (ZONIA BROWER) Immunizations Up To Date Tetanus Booster (TDap): Less than 5yrs PED Vaccines UTD: Yes Influenza Vaccine Up-to-Date: No; Not Current First/Initial COVID19 Vaccinat: 2020 Second COVID19 Vaccination Sunil: J AND J NOVEMBER 2020 Third COVID19 Vaccination Date: AND J NOVEMBER 2020 COVID19 Vaccine 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: [employer] (ZONIA BROWER) Seasonal Allergies Seasonal Allergies: Yes (ZONIA BROWER) Past Medical History Surgery/Hospitalization HX: SHOULDER X2, CHOLECYSTECTOMY, KNEE, T/A, ASTHMA, GERD, ANXIETY/DEPRESSION, SCHIZOPHRENIA, ADHD, BIPOLAR, SIM-DANLOS SYDROME Surgeries: Yes (DENTAL;UD;L SHOULDER ARTHROSCOPY-TORN LABRUM x2;OVARIAN CYSTECTOMY;R KNEE ) Abdominal, Adenoidectomy, Gallbladder, Orthopedic, Tonsillectomy Respiratory: Yes Asthma Cardiac: No Neurological: No Reproductive Disorders: Yes (LEFT OVARIAN CYST) Female Reproductive Disorders: Ovarian Cyst Sexually Transmitted Disease: No HIV/AIDS: No Genitourinary: No Gastrointestinal: No Musculoskeletal: Yes (ORTHO SURGERIES, Sim-Danlos syndrome) Endocrine: Yes (Obesity) HEENT: Yes (S/P TONSILLECTOMY) Tonsilitis Loss of Vision: Bilateral Cancer: No Psychosocial: Yes Anxiety, Bipolar, Schizophrenia, Depression Integumentary: No Blood Disorders: No Adverse Reaction/Blood Tranf: No (N/A) (ZONIA BROWER) Family Medical History No Pertinent Family Hx, Other Conditions/Hx (ZONIA BROWER) Physical Exam Vital Signs Vital Signs - First Documented 05/07/23 02:13 Temp 36.7 Pulse 94 Resp 16 B/P (MAP) 130/100 (110) Pulse Ox 98 O2 Delivery Room Air (KRISTOFER WEAVER MD) Vital Signs Capillary Refill : (ZONIA BROWER) Height, Weight, BMI Height: 5'11.00" Weight: 190lbs. 0oz. 86.161854qj; 40.00 BMI Method:Stated General Appearance: No Apparent Distress, WD/WN HEENT: PERRL/EOMI, Other (clean chip not involving gumline of R second molar. No gum erythema or swelling. No signs of infection of abscess. Percussive tenderness to R 2nd molar) Respiratory: Lungs Clear, Normal Breath Sounds, No Accessory Muscle Use, No Respiratory Distress Cardiovascular: Regular Rate, Rhythm, No Murmur Neurologic/Psychiatric: Alert, Oriented x3, Normal Mood/Affect (affect slightly flat) Skin: Normal Color, Warm/Dry Lymphatic: No Adenopathy (ZONIA BROWER) Procedures/Interventions Progress dental block to right upper molar with 0.5% bupivicaine and 1% plain lidocaine 3ml (KRISTOFER WEAVER MD) Progress/Results/Core Measures Suspected Sepsis SIRS Temperature: Pulse: Respiratory Rate: Blood Pressure / Mean: (ZONIA BROWER) Results/Orders My Orders Orders - KRISTOFER WEAVER MD Bupivacaine 0.5% 10 Ml Inj (Bupivacaine (05/07/23 02:45) Lidocaine 2% Pf 10 Ml (Xylocaine 2% Pf) (05/07/23 02:45) Lidocaine 2% Pf 5 Ml (Xylocaine 2% Pf) (05/07/23 02:46) (KRISTOFER WEAVER MD) Medications Given in ED (KRISTOFER WEAVER MD) Vital Signs/I&O 05/07/23 05/07/23 02:13 03:28 Temp 36.7 Pulse 94 93 Resp 16 16 B/P (MAP) 130/100 (110) 129/86 Pulse Ox 98 98 O2 Delivery Room Air Room Air (KRISTOFER WEAVER MD) Vital Signs/I&O Capillary Refill : (ZONIA BROWER) Progress Note : Time: 03:05 Progress Note Patient seen and evaluated by me. I have reviewed the medical student's documentation and agree. My evaluation today includes physical exam. Exam pertinent for percussive tenderness to right upper molar- #3. No gingival swelling/fluctuance. Overall fairly good dental hygiene. She had no obvious dental fracture. The Rest of her exam was unremarkable. ddx - developing dental abscess/ dental caries Patient treated in the ED with a dental block to tooth #3. Hurricaine spray for topical anaesthesia followed by direct infiltration of bupivicaine 0.5% amd lidociane 1% plaine mixed. Approximately 3ml was used. Patient had pain relief. She will follow up with [facility] dental clinic later today. Adivsed to take OTC tylenol and Ibuprofen. Given a prescription for PenvK. Return precautions provided in both verbal and written format. All questions were sought and answered. Patient was improved at discharge. (KRISTOFER WEAVER MD) Departure Impression Primary Impression: Pain, dental Disposition: HOME, SELF-CARE Condition: Stable Departure-Patient Inst. Decision time for Depature: 03:07 (KRISTOFER WEAVER MD) Referrals: TOMY SUAREZ MD (PCP/Family) Primary Care Physician Patient Instructions: Dental Pain Add. Discharge Instructions: Continue the ibuprofen and tylenol every 6 hours. Use a good oral rinse after brushing such as Listerene. [place] twice a day. Take the antibiotics as directed - Pen VK, 500mg 4 times a day for 10 days. Please follow up with [facility] Dentist this week. Return to the Emergency Department for any worsening pain, especially with fever, facial swelling and redness. Scripts Penicillin V Potassium (Penicillin V Potassium) 500 Mg Tablet 500 MG PO QID for 10 Days, #40 TAB Prov: KRISTOFER WEAVER MD 05/07/23 Verification and Attestation of Medical Student E/M Service A medical student performed and documented this service in my presence. I reviewed and verified all information documented by the medical student and made modifications to such information, when appropriate. I personally performed the physical exam and medical decision making. Kristofer Weaver, May 07, 2023,03:09 (KRISTOFER WEAVER MD) Images Mouth/Nose 1 - Tenderness (KRISTOFER WEAVER MD) Copy Copies To 1: HELLEN HERNADEZ DO Copies To 2: TOMY SUAREZ MD, TAYLOR May 07, 2023 02:36 KRISTOFER WEAVER MD May 07, 2023 03:09
[2023-05-07] MEDS ORDERED: LIDOCAINE 2% INJ ONE (02:45)
[2023-05-07] MEDS ORDERED: BUPIVACAINE 0.5% 10 ML VIAL INJ ONE (02:45)
[2023-05-07] MEDS ORDERED: LIDOCAINE PF 2% 5 ML VIAL ONE (02:46)
[2023-05-07] MEDS ORDERED: PENI500T PO (03:09)
[2023-05-07 03:28] VITALS: BP 129/86
== END 2023-05-07 03:28 | disposition home or self-care (01) ==
LOC: EDUNIT# 02:08 → ER 02:11
DX: K08.89 Other specified disorders of teeth and supporting structures (principal); E66.9 Obesity, unspecified; Z68.41 Body mass index [BMI] 40.0-44.9, adult; Z28.311 Partially vaccinated for COVID-19
CPT/HCPCS: 99282